=== PATIENT | male | born 1960 | race Caucasian/White ===

== ENCOUNTER 2024-02-17 20:28 | Inpatient (IN) | payer SELFPAY ==
[2024-02-17 20:31] VITALS: BP 118/73; PULSE 123; RESP 24; TEMP 37.9; O2SAT 90; BMI 23.7
--- NOTE | 2024-02-17 20:56 | CTR_ITS ---
PROCEDURE INFORMATION: Exam: CT Abdomen And Pelvis Without Contrast Exam date and time: 02/17/2024 9:44 PM Age: 63 years old Clinical indication: Pain and abnormal findings; Abnormal lab test; Abnormal kidney function lab tests and elevated lipase and elevated wbc; Abdominal pain; Localized; Left lower quadrant (llq); Patient HX: C/O llq pain with fever. Wbc 20k. Creat 4.5. Lactic 2.9. Crp 245.5. Lipase 296. ; Additional info: Fever, vomiting llq pain TECHNIQUE: Imaging protocol: Computed tomography of the abdomen and pelvis without contrast. Radiation optimization: All CT scans at this facility use at least one of these dose optimization techniques: automated exposure control; mA and/or kV adjustment per patient size (includes targeted exams where dose is matched to clinical indication); or iterative reconstruction. COMPARISON: CR (CHEST, ) 02/17/2024 9:01 PM RADIATION DOSE METRICS: Total DLP (mGy-cm): 1864.42 FINDINGS: Pleural spaces: Pleural nodularity along the posterior aspect of the lower lobes. Liver: Normal. No mass. Gallbladder and bile ducts: Normal. No calcified stones. No ductal dilation. Pancreas: Normal. No ductal dilation. Spleen: Multiple punctate calcifications in the spleen consistent with prior granulomatous infection. Adrenal glands: Normal. No mass. Kidneys and ureters: Normal. No hydronephrosis. Stomach and bowel: Unremarkable. No obstruction. No mucosal thickening. Appendix: No evidence of appendicitis. Intraperitoneal space: Unremarkable. No free air. No significant fluid collection. Vasculature: The left femoral vein is asymmetrically larger than the right with adjacent fat stranding which is nonspecific but can be seen the setting of thrombophlebitis. A left lower extremity Doppler ultrasound may be obtained to exclude thrombus. Lymph nodes: Multiple retroperitoneal enlarged lymph nodes measuring up to 11 mm in short axis in the left periaortic station. Multiple enlarged lymph nodes in the left groin measuring up to 24 mm in short axis and a left inguinal lymph node measuring up to 13 mm in short axis. Findings are nonspecific but can be seen the setting infection or neoplasm such as lymphoma. Urinary bladder: Unremarkable as visualized. Reproductive: Unremarkable as visualized. Bones/joints: Unremarkable. No acute fracture. Soft tissues: Unremarkable. CT/CT abdomen pelvis wo con [id number] IMPRESSION: 1. Multiple retroperitoneal enlarged lymph nodes measuring up to 11 mm in short axis in the left periaortic station. Multiple enlarged lymph nodes in the left groin measuring up to 24 mm in short axis and a left inguinal lymph node measuring up to 13 mm in short axis. Findings are nonspecific but can be seen the setting infection or neoplasm such as lymphoma. 2. The left femoral vein is asymmetrically larger than the right with adjacent fat stranding which is nonspecific but can be seen the setting of thrombophlebitis. A left lower extremity Doppler ultrasound may be obtained to exclude thrombus. 3. No bowel obstruction or inflammatory process associated with the bowel. 4. No free air or significant free fluid in the abdomen or pelvis. 5. No evidence of appendicitis.
--- NOTE | 2024-02-17 20:56 | XRR_ITS ---
PROCEDURE INFORMATION: Exam: XR Chest Exam date and time: 02/17/2024 9:01 PM Age: 63 years old Clinical indication: Cough and fever; Patient HX: Cough with fever and tachycardia; Additional info: Fever cough tachycardia TECHNIQUE: Imaging protocol: Radiologic exam of the chest. Views: 1 view. COMPARISON: No relevant prior studies available. FINDINGS: Lungs: Increased interstitial markings with peribronchial cuffing in the lung bases are nonspecific but can be seen the setting of bronchitis, pulmonary vascular congestion, viral infection and small-vessel airways disease. Multiple bilateral calcified granulomas. Pleural spaces: Unremarkable. No pleural effusion. No pneumothorax. Heart/Mediastinum: Unremarkable. No cardiomegaly. Bones/joints: Unremarkable. XR/XR chest 1V portable [id number] IMPRESSION: Increased interstitial markings with peribronchial cuffing in the lung bases are nonspecific but can be seen the setting of bronchitis, pulmonary vascular congestion, viral infection and small-vessel airways disease.
[2024-02-17 21:04] LABS: Basophils % 0.1 %; Hematocrit 41.2 % (37-53); Lymphocytes # 1.8 10^3/uL (0.8-4.8); Lymphocytes % 8.6 %; Mean Corpuscular Hemoglobin 31.1 pg (27-33); Mean Platelet Volume 12.5 fL (7.4-10.4); Monocytes # 0.7 10^3/uL (0.2-0.9); Monocytes % 3.2 %; Neutrophils # 18.05 10^3/uL (1.8-7.7); Neutrophils % 86.8 %; Nucleated Red Blood Cells % 0 %; Platelet Count 184 10^3/cmm (157-399); Red Blood Count 4.63 10^6/uL (3.85-5.65); Red Cell Distribution Width 12.7 % (12.1-15.1); White Blood Count 20.78 10^3/uL (3.29-11.43)
[2024-02-17] MEDS: piperacillin-tazobactam 4.5 GM in sodium chloride 0.9% (plus) 50 ML IV (21:17)
[2024-02-17 21:18] LABS: Lactic Sepsis W/Reflex 2.9 mmol/L (0.5-2.2)
--- NOTE | 2024-02-17 21:24 | ECG_ITS ---
[facility] Test Date: 2024-02-17 Pat Name: Joanna Mascorro Department: Room: Gender: Male Talent Development Director: : [id number] Requested By: Gerson Avila Order Number: [id number] Reading MD: Martinez Mathews M.D. Measurements Intervals [place]ott Rate: 110 P: 73 AR: 161 QRS: 81 QRSD: 98 T: 29 QT: 293 QTc: 397 Interpretive Statements SINUS TACHYCARDIA NONSPECIFIC T-WAVE ABNORMALITY ABNORMAL RHYTHM ECG No previous ECG available for comparison Electronically Signed On 02-18-2024 14:29:49 CDT by Martinez Mathews M.D. [id number]
[2024-02-17 21:30] LABS: Alanine Aminotransferase 97 U/L (0-41); Albumin Level 3.2 g/dL (3.5-5.2); Alkaline Phosphatase 75 U/L (40-130); Anion Gap 22.7 (5-19); Aspartate Amino Transferase 262 U/L (0-40); Blood Urea Nitrogen 71 mg/dL (8-23); C Reactive Protein 245.5 mg/L (0.0-4.9); Calcium 7.4 mg/dL (8.5-10.5); Carbon Dioxide 22 mmol/L (22-29); Chloride 93 mmol/L (98-107); Glomerular Filtration Rate 13.3 mL/min (90-130); Glucose 171 mg/dL (65-115); Lipase 296 U/L (13-60); Magnesium 2.9 mg/dL (1.7-2.3); NT Pro B Type Natriuretic Pept 96 pg/mL (0-125); Osmolality Calculated 303 mOsm/kg (285-295); Potassium 3.7 mmol/L (3.5-5.1); Sodium 134 mmol/L (136-145); Total Bilirubin 0.8 mg/dL (0.15-1.2); Total Protein 7.2 g/dL (6.6-8.7)
--- NOTE | 2024-02-17 21:49 | ED_ITS ---
HPI - Abdominal Pain 2 General: Chief Complaint: Abdominal Pain Stated Complaint: Vomiting\Diah\Fever\ Time Seen by Provider: 02/17/24 20:44 History of Present Illness: 63-year-old male gentleman who says he h as been sick for a week. He complains of intermittent abdominal pain, vomiting, some loose stool, and fever. He has had a cough as well, which is a chronic thing for him. Minimal sputum production. He has got lethargic in the last day or so, so his family brought him in. No sick contacts. No exposure to antibiotics recently. He does not appear to be on any medications. Associated Symptoms: Reports chills, diarrhea, fever(s), nausea and vomiting; Denies hematochezia Review of Systems 2 Const: Reports: fever(s) and chills Eyes: Denies: change in vision Card: Denies: chest pain Resp: Reports: dyspnea and non-productive cough GI: Reports: abdominal pain, nausea, vomiting and diarrhea; Denies: hematochezia : Denies: flank pain or difficulty urinating Skin/Breast: Denies: rash Physical Exam 2 Const: GENERAL APPEARANCE: cooperative and ill appearing; not frail appearing NUTRITIONAL APPEARANCE: thin HENMT: COMMON NORMALS: normocephalic, atraumatic and Normal external nose present HEAD & SCALP: normocephalic and atraumatic FACE & SINUS: normal facial exam and face symmetric NOSE: Normal external nose present Eye: COMMON NORMALS: Equal, round and reactive pupils present and EOMs intact bilaterally PUPIL: Yes Equal, round and reactive pupils present Neck/C-Spine: GENERAL: Yes trachea midline Chest: CHEST: Yes Symmetrical chest wall rise Resp: COMMON NORMALS: clear to auscultation bilaterally EFFORT & INSPECTION: Yes tachypneic AUSCULTATION: clear to auscultation bilaterally Cardio: COMMON NORMALS: regular rhythm RATE: tachycardic RHYTHM: regular rhythm GI: COMMON NORMALS: Normal to inspection, nondistended, normoactive bowel sounds present and Soft to palpation PALPATION: Yes Soft to palpation and Yes Tenderness to palpation present (GI) Details: LLQ Extremity: GENERAL: Yes edema (1+) Neuro: OSIRIS COMA SCALE: document GCS findings Osiris coma scale eye opening: To sound [place] coma scale verbal response: Orientated Osiris coma scale motor response: Obey commands Osiris coma scale total score: 14 S ENSORY EXAM: Yes extremities (intact) Skin: COMMON NORMALS: no rashes or lesions noted GENERAL SKIN EXAM: no rashes or lesions noted Course 2 Vital Signs: Vital signs: Vital Signs Temperature 100.2 F H 02/18/24 00:55 Pulse Rate 110 H 02/18/24 00:55 Respiratory Rate 16 02/18/24 00:55 Blood Pressure 159/79 02/18/24 00:55 Pulse Oximetry 94 02/18/24 00:55 Oxygen Delivery Me thod Room Air 02/17/24 20:31 MDM - Abdominal Pain Medical Decision Making Patient meets sepsis criteria. White blood cell count is 21. Creatinine is 4.5. No prior indices in the system. His BUN is 70. He is given a sepsis bolus. Chest x-ray shows increased interstitial markings. His lipase is elevated. His BNP is normal. His CRP is 245. Liver enzymes are slightly elevated as is his lactate. CT of the abdomen pelvis are pending. He is covered with antibiotics. CT of the abdomen pelvis does not reveal specific findings, but does reveal multiple retroperitoneal lymph nodes as well as lymph nodes in the left groin. There is left femoral vein asymmetry with fat stranding which could be thrombophlebitis. Doppler has been ordered. There is no obvious colitis. Respiratory panel is negative. Spoke with hospitalist regarding admission for sepsis and acute renal failure. He agrees, and will see the patient in the ER. Heart rate is significantly improved after fluid bolus, he is down to 100. Lab Data 02/17/24 20:52 02/17/24 20:52 Labs/Radiology: Radiology Impressions Abdomen/Pelvis CT 02/17/24 20:56 IMPRESSION: 1. Multiple retroperitoneal enlarged lymph nodes measuring up to 11 mm in short axis in the left periaortic station. Multiple enlarged lymph nodes in the left groin measuring up to 24 mm in short axis and a left inguinal lymph node measuring up to 13 mm in short axis. Findings are nonspecific but can be seen the setting infection or neoplasm such as lymphoma. 2. The left femoral vein is asymmetrically larger than the right with adjacent fat stranding which is nonspecific but can be seen the setting of thrombophlebitis. A left lower extremity Doppler ultrasound may be obtained to exclude thrombus. 3. No bowel obstruction or inflammatory process associated with the bowel. 4. No free air or significant free fluid in the abdomen or pelvis. 5. No evidence of appendicitis. Chest X-Ray 02/17/24 20:56 IMPRESSION: Increased interstitial markings with peribronchial cuffing in the lung bases are nonspecific but can be seen the setting of bronchitis, pulmonary vascular congestion, viral infection and small-vessel airways disease. Laboratory Results WBC 20.78 10^3/uL (3.29-11.43) H 02/17/24 20:52 RBC 4.63 10^6/uL (3.85-5.65) 02/17/24 20:52 Hgb 14.40 g/dL (11.27-16.99) 02/17/24 20:52 Hct 41.2 % (37-53) 02/17/24 20:52 MCV 89.0 fl (82-101) 02/17/24 20:52 MCH 31.1 pg (27-33) 02/17/24 20:52 MCHC 35.0 g/dL (30-55) 02/17/24 20:52 RDW 12.7 % (12.1-15.1) 02/17/24 20:52 Plt Count 184 10^3/cmm (157-399) 02/17/24 20:52 MPV 12.5 fL (7.4-10.4) H 02/17/24 20:52 Neut % (Auto) 86.8 % 02/17/24 20:52 Lymph % (Auto) 8.6 % 02/17/24 20:52 [place] % (Auto) 3.2 % 02/17/24 20:52 Eos % (Auto) 0.0 % 02/17/24 20:52 Baso % (Auto) 0.1 % 02/17/24 20:52 Neut # (Auto) 18.05 10^3/uL (1.8-7.7) H 02/17/24 20:52 Lymph # (Auto) 1.8 10^3/uL (0.8-4.8) 02/17/24 20:52 [place] # (Auto) 0.7 10^3/uL (0.2-0.9) 02/17/24 20:52 Eos # (Auto) 0.0 10^3/uL (0.0-0.8) 02/17/24 20:52 Baso # (Auto) 0.0 10^3/uL (0.0-0.1) 02/17/24 20:52 Nucleated RBC % (auto) 0 % 02/17/24 20:52 Nucleated RBCs # 0.0 /100WBC 02/17/24 20:52 PT 14.60 SECONDS (12.1-14.9) 02/17/24 20:52 INR 1.10 (0.8-1.2) 02/17/24 20:52 Sodium 134 mmol/L (136-145) L 02/17/24 20:52 Potassium 3.7 mmol/L (3.5-5.1) 02/17/24 20:52 Chloride 93 mmol/L (98-107) L 02/17/24 20:52 Carbon Dioxide 22 mmol/L (22-29) 02/17/24 20:52 Anion Gap 22.7 (5-19) H 02/17/24 20:52 BUN 71 mg/dL (8-23) H 02/17/24 20:52 Creatinine 4.5 mg/dL (0.7-1.2) H 02/17/24 20:52 GFR Calculation 13.3 mL/min (90-130) L 02/17/24 20:52 Glucose 171 mg/dL (65-115) H 02/17/24 20:52 Calculated Osmolality 303 mOsm/kg (285-295) H 02/17/24 20:52 Lactic Acid 2.9 mmol/L (0.5-2.2) H 02/17/24 20:52 Lactic Acid (Sepsis) 2.0 mmol/L (0.5-2.2) 02/18/24 00:08 Calcium 7.4 mg/dL (8.5-10.5) L 02/17/24 20:52 Magnesium 2.9 mg/dL (1.7-2.3) H 02/17/24 20:52 Total Bilirubin 0.8 mg/dL (0.15-1.2) 02/17/24 20:52 AST 262 U/L (0-40) H 02/17/24 20:52 ALT 97 U/L (0-41) H 02/17/24 20:52 Alkaline Phosphatase 75 U/L (40-130) 02/17/24 20:52 Creatine Kinase 1133 U/L (39-308) H* 02/17/24 20:52 C-Reactive Protein 245.5 mg/L (0.0-4.9) H 02/17/24 20:52 NT-Pro-B Natriuret Pep 96 pg/mL (0-125) 02/17/24 20:52 Total Protein 7.2 g/dL (6.6-8.7) 02/17/24 20:52 Albumin 3.2 g/dL (3.5-5.2) L 02/17/24 20:52 Globulin 4.0 g/dL (1.3-4.6) 02/17/24 20:52 Lipase 296 U/L (13-60) H 02/17/24 20:52 Urine Color Yellow (Yellow) 02/17/24 22:45 Urine Appearance Cloudy (CLEAR) A 02/17/24 22:45 Urine pH 5 (5-7) 02/17/24 22:45 Ur Specific [place] 1.020 (1.005-1.030) 02/17/24 22:45 Urine Protein 1+ (Negative) H 02/17/24 22:45 Urine Glucose (UA) Trace (Normal) H 02/17/24 22:45 Urine Ketones Negative (Negative) 02/17/24 22:45 Urine Blood 3+ (Negative) H 02/17/24 22:45 Urine Nitrate Negative (Negative) 02/17/24 22:45 Urine Bilirubin 1+ (Negative) H 02/17/24 22:45 Urine Urobilinogen 1 mg/dL (Negative) H 02/17/24 22:45 Ur Leukocyte Esterase Negative (Negative) 02/17/24 22:45 Urine RBC 15-25 /hpf (0-2) H 02/17/24 22:45 Urine WBC 0-4 /hpf (0-5) H 02/17/24 22:45 Ur Squamous Epith Cells 0-4 /hpf (0-5) H 02/17/24 22:45 Amorphous Sediment 2+ /hpf 02/17/24 22:45 Urine Bacteria 3+ /hpf (NONE) H 02/17/24 22:45 Hyaline Casts 5-10 /lpf H 02/17/24 22:45 Fine Granular Casts 0-4 /lpf H 02/17/24 22:45 Coarse Granular Casts 0-4 /lpf H 02/17/24 22:45 Ethyl Alcohol < 10 mg/dL (0-10) 02/17/24 20:52 Adenovirus (PCR) Not detected (NOT DETECT) 02/17/24 22:05 C. pneumoniae DNA (PCR) Not detected (NOT DETECT) 02/17/24 22:05 Coronavirus 229E (PCR) Not detected (NOT DETECT) 02/17/24 22:05 Human Metapneumovir PCR Not detected (NOT DETECT) 02/17/24 22:05 Influenza A (H1) PCR Not detected (NOT DETECT) 02/17/24 22:05 Influ A (H1/09) PCR Not detected (NOT DETECT) 02/17/24 22:05 Influenza A (H3) PCR Not detected (NOT DETECT) 02/17/24 22:05 Influenza Type A (PCR) Not detected (NOT DETECT) 02/17/24 22:05 Influenza Type B (PCR) Not detected (NOT DETECT) 02/17/24 22:05 M. pneumoniae (PCR) Not detected (NOT DETECT) 02/17/24 22:05 Parainfluenza 1 (PCR) Not detected (NOT DETECT) 02/17/24 22:05 Parainfluenza 2 (PCR) Not detected (NOT DETECT) 02/17/24 22:05 Parainfluenza 3 (PCR) Not detected (NOT DETECT) 02/17/24 22:05 Parainfluenza 4 (PCR) Not detected (NOT DETECT) 02/17/24 22:05 RSV Type A (PCR) Not detected (NOT DETECT) 02/17/24 22:05 RSV Type B (PCR) Not detected (NOT DETECT) 02/17/24 22:05 Entero/Rhino (PCR) Not detected (NOT DETECT) 02/17/24 22:05 SARS-CoV-2 (PCR) Not detected (NOT DETECT) 02/17/24 22:05 All radiology interpretation(s) finalized by discharge Discharge Plan Discharge Patient Disposition: Admitted As Inpatient Admit Provider: Dre Fink Clinical Impression: Sepsis Condition: Serious Coding Level of Care Code ED Executive Producer for Dinh Eubanks
[2024-02-17 22:08] VITALS: BP 159/87; PULSE 104; RESP 16; O2SAT 97
[2024-02-17 22:49] LABS: Reflex Lactate Order REFLEX LACTIC ORDERD
[2024-02-17 23:11] LABS: Add Urine Microscopic? YES; Bilirubin Urine 1+ (Negative); Blood Urine 3+ (Negative); Glucose Urine UA Trace (Normal); Ketones Urine Negative (Negative); Leukocyte Esterase Urine Negative (Negative); Nitrate Urine Negative (Negative); Protein Urine 1+ (Negative); Urine Appearance Cloudy (CLEAR); Urine Color Yellow (Yellow); Urobilinogen Urine 1 mg/dL (Negative); pH Urine 5 (5-7)
[2024-02-17 23:12] LABS: Add Urine Culture? Yes; Amorphous Sediment Urine 2+ /hpf; Bacteria Urine 3+ /hpf; Coarse Granular Casts Urine 0-4 /lpf; Fine Granular Casts Urine 0-4 /lpf; RBC Urine 15-25 /hpf (0-2); Squamous Epithelial Cell Urine 0-4 /hpf (0-5); WBC Urine 0-4 /hpf (0-5)
[2024-02-17 23:58] LABS: Adenovirus Not Detected (NOT DETECT); Chlamydia Pneumoniae Not Detected (NOT DETECT); Coronavirus 229E,HKU1,NL63,OC4 Not Detected (NOT DETECT); Human Metapneumovirus Not Detected (NOT DETECT); Human Rhinovirus/Enterovirus Not Detected (NOT DETECT); Influenza A Not Detected (NOT DETECT); Influenza A H1 Not Detected (NOT DETECT); Influenza A H1-2009 Not Detected (NOT DETECT); Influenza A H3 Not Detected (NOT DETECT); Influenza B Not Detected (NOT DETECT); Mycoplasma Pneumoniae Not Detected (NOT DETECT); Parainfluenza Virus Type 1 Not Detected (NOT DETECT); Parainfluenza Virus Type 2 Not Detected (NOT DETECT); Parainfluenza Virus Type 3 Not Detected (NOT DETECT); Parainfluenza Virus Type 4 Not Detected (NOT DETECT); Respiratory Syncytial Virus A Not Detected (NOT DETECT); Respiratory Syncytial Virus B Not Detected (NOT DETECT); SARS-COV-2 Not Detected (NOT DETECT)
[2024-02-18] VITALS (11 sets, daily range): BP systolic 119–159; BP diastolic 69–81; PULSE 83–112; RESP 16–22; TEMP 36.4–39.4; O2SAT 90–94; BMI 23.4
[2024-02-18 00:39] LABS: Alcohol Level < 10 mg/dL (0-10)
[2024-02-18 00:42] LABS: Creatine Phosphokinase 1133 U/L (39-308)
--- NOTE | 2024-02-18 00:59 | P.HP_ITS ---
Providers/Chief Complaint 2 Admitting Physician: Dre Fink Chief Complaint: Vomiting\Diah\Fever\ History of Present Illness Joanna Mascorro is a 63 year old male without known medical history but does not have a primary physician, not on any medications, has not been feeling for close to a week, has been laid out as per his family. He has had nausea and vomiting as well as diarrhea. He has been getting weaker, having difficulties with his balance. In ER found to have a fever 100.9, leukocytosis 20.78. NOLA versus NOLA on CKD creatinine 4.5, BUN 71, lactic acid 2.9, transaminitis, AST 262, ALT 97, lipase 26. CRP 245. UA with 15-25 RBC, 0-4 WBC. 3+ bacteria. Chest x-ray with increased interstitial markings with peribronchial cuffing in the lung bases nonspecific but could be secondary to bronchitis, pulmonary vascular congestion, viral infection and small vessel airway disease. CT abdomen pelvis with multiple retroperitoneal enlarged lymph nodes measuring up to 11 mm in short axis and left periaortic station. Enlarged lymph nodes in the left groin, left inguinal lymph node, nonspecific, but could be seen in the setting of infection, neoplasm such as lymphoma. Additional finding of left femoral vein asymmetrically larger than the right with adjacent fat stranding which is nonspecific can be seen feeling of thrombophlebitis. Left lower extremity Doppler ultrasound may be obtained to exclude thrombus. Review of Systems 2 Const: Denies: fever(s), chills, body aches or malaise Eyes: Denies: change in vision ENMT: Denies: throat pain Card: Denies: chest pain, edema, pre-syncope or dyspnea on exertion Resp: Denies: dyspnea, productive cough, change in phlegm color or hemoptysis GI: Reports: nausea, vomiting and diarrhea; Denies: abdominal pain, constipation, hematochezia or melena : Denies: flank pain, difficulty urinating, urinary frequency or hematuria Musc: Denies: back pain, joint swelling or joint redness Skin/Breast: Denies: rash or new lesions Neuro: Reports: confusion; Denies: headache(s) or dizziness Endo: Denies: polyuria or polydipsia Medications/Allergies Allergies Allergy/AdvReac Type Severity Reaction Status Date / Time No Known Allergies Allergy Verified 02/17/24 20:36 Vitals/I&O/Wt Last Vital Signs Temp 100.2 F H 02/18/24 00:55 Pulse 110 H 02/18/24 00:55 Resp 16 02/18/24 00:55 BP 159/79 02/18/24 00:55 Pulse Ox 94 02/18/24 00:55 O2 Del Method Room Air 02/17/24 20:31 02/17/24 02/17/24 02/18/24 14:59 22:59 06:59 Intake Total 2567.45 / 2567.45 Balance 2567.45 / 2567.45 Weight last 48 hrs Weight 83.915 kg Physical Exam 2 Narrative: Accompanied by family including his son Const: COMMON NORMALS: alert GENERAL APPEARANCE: cooperative O RIENTATION/CONSCIOUSNESS: Yes awake and Yes lethargic OTHER: Wakes up to voice HENMT: COMMON NORMALS: oropharynx normal OTHER: Minimal pink discoloration of bilateral EAM Neck/C-Spine: COMMON NORMALS: no JVD Resp: COMMON NORMALS: normal respiratory effort and clear to auscultation bilaterally AUSCULTATION: clear to auscultation bilaterally Cardio: COMMON NORMALS: no JVD, regular rhythm, S1 normal heart sound present, S2 normal heart sound present and No murmurs present (Cardio) RHYTHM: regular rhythm HEART SOUNDS: S1 normal heart sound present and S2 normal heart sound present GI: COMMON NORMALS: Normal to inspection, nondistended, normoactive bowel sounds present, Soft to palpation and non-tender PALPATION: Yes Soft to palpation Extremity: COMMON NORMALS: no joint enlargement GENERAL: Yes edema (3+ L ankle, 2+ R ankle) Neuro: COMMON NORMALS: patient oriented x3 and moves all extremities S ENSORIUM/ORIENTATION: Yes alert Skin: OTHER: Shallow ulceration of posterior left heel without drainage Sepsis: Is patient septic: Yes Focused sepsis exam performed: Yes F ocused sepsis exam: Good capillary refill, no mottling or cyanosis. Data 02/17/24 20:52 02/17/24 20:52 A&P Assessment and plan (1) Sepsis: Presents with sepsis of unclear etiology, with fever 100.9, leukocytosis 21, tachycardia 110, later fever up to 102, has been feeling unwell for close to about a week. Has been having nausea vomiting and diarrhea. Is been going weaker, some difficulty with his balance. Reviewed vitals, CBC, INR, CMP, lactic acid, CK, CRP, lipase, magnesium, UA, respiratory viral panel, chest x- ray, CT abdomen pelvis, venous duplex, ER note, discussed with ER provider. Possibly combination of acute viral illness with systemic symptoms, with secondary infection, possibly UTI, with dehydration, rhabdomyolysis, NOLA, acute liver injury, lactic acidosis, acute encephalopathy. Blood cultures requested, urine cultures pending. Empiric antibiotic coverage with Zosyn for now. He denies headache, no meningeal signs, however, with acute encephalopathy, sepsis. Did complain of some intermittent back pain, will obtain CT thoracic lumbar spine. Zosyn, linezolid. Monitor for risk of agranulocytosis with linezolid. Requested tick panel as well. Empiric doxycycline. Coxiella serology, Leptospira. With left heel ulcer, left groin and para-aortic lymphadenopathy, Francisella serology. Consider infectious disease consultation if available. Lipase elevation 296, possible pancreatitis, although not noted on CT abdomen pelvis. Follow-up lipase level, n.p.o. for now. Obtain upper quadrant ultrasound. Triglyceride level. (2) Acute encephalopathy: Acute encephalopathy possibly metabolic with multiple derangements including dehydration, NOLA, liver dysfunction, also possible infection, sepsis. Assess respiratory viral panel, blood cultures obtained, follow-up. Treat possible UTI. Obtain additional imaging of the thoracic and lumbar spine. Obtain LP. (3) NOLA (acute kidney injury): Suspect prerenal after nausea vomiting and diarrhea, poor oral intake, received fluid challenge in ER. Continue gentle hydration with LR. Does have peripheral edema, at risk of fluid overload. Noted CK elevation, 1133, follow-up level. (4) Liver dysfunction: Liver dysfunction, baseline unknown. AST 262, ALT 97. He denies any alcohol consumption. EtOH is negative. And UDS, denies any recreational substance use. Obtain respiratory viral panel, hepatitis panel. Lipase elevation 296, possible pancreatitis, although not noted on CT abdomen pelvis. Follow-up lipase level, n.p.o. for now. Obtain upper quadrant ultrasound. Triglyceride level. (5) Lymphadenopathy: Left inguinal, para-aortic lymphadenopathy, unclear cause. He denies any symptoms in the left leg, left groin. With small ulceration of the posterior left heel. Will need follow-up, consideration of a biopsy. For now we will send Francisella serology. Plan Left heel ulcer: No drainage, minimal light surrounding erythema. Protect with foam dressing. Does not have a primary care provider, unknown health status otherwise. Case management consultation for post discharge planning and will need a PCP. Attestations 2 Medical Necessity Statement*: Admission of over 2 midnights anticipated for assessment of management of sepsis, acute encephalopathy, NOLA, liver dysfunction, NOLA, additional medical problems as above, in a gentleman with unknown past medical history, does not have a PCP. Diagnoses Sepsis A41.9 Acute encephalopathy G93.40 NOLA (acute kidney injury) N17.9 Liver dysfunction K76.89 Lymphadenopathy R59.1
--- NOTE | 2024-02-18 01:39 | CTR_ITS ---
PROCEDURE INFORMATION: Exam: CT Lumbar Spine Without Contrast Exam date and time: 02/18/2024 2:32 AM Age: 63 years old Clinical indication: Low back pain; Patient HX: C/O back pain. Currently septic. ; Additional info: Encephalopathy, sepsis, interm back pain TECHNIQUE: Imaging protocol: Computed tomography of the lumbar spine without contrast. Radiation optimization: All CT scans at this facility use at least one of these dose optimization techniques: automated exposure control; mA and/or kV adjustment per patient size (includes targeted exams where dose is matched to clinical indication); or iterative reconstruction. COMPARISON: CT thoracic spin wo con* [id number] 02/18/2024 2:28 AM RADIATION DOSE METRICS: Total DLP (mGy-cm): 1807 FINDINGS: Bones/joints: Mild levocurvature of the lumbar spine is present. The normal lumbar lordosis is maintained with trace retrolisthesis of L3. No fracture identified. Vertebral body heights are well preserved. There are multilevel degenerative changes, manifested by intervertebral disc space narrowing, endplate osteophytes and facet joint arthrosis. No significant disc protrusion. No severe spinal canal stenosis. Lymph nodes: Enlarged retroperitoneal and bilateral iliac chain lymph nodes noted, the largest on the left measuring 1.2 cm in transverse dimension. Soft tissues: Unremarkable. CT/CT lumbar spine wo con* [id number] IMPRESSION: 1. No acute findings in the lumbar spine. 2. Retroperitoneal and bilateral iliac chain lymphadenopathy. Clinical correlation recommended.
--- NOTE | 2024-02-18 01:39 | CTR_ITS ---
PROCEDURE INFORMATION: Exam: CT Thoracic Spine Without Contrast Exam date and time: 02/18/2024 2:28 AM Age: 63 years old Clinical indication: Pain in thoracic spine; Patient HX: C/O back pain. Currently septic. ; Additional info: Encephalopathy, sepsis, interm back pain TECHNIQUE: Imaging protocol: Computed tomography of the thoracic spine without contrast. Radiation optimization: All CT scans at this facility use at least one of these dose optimization techniques: automated exposure control; mA and/or kV adjustment per patient size (includes targeted exams where dose is matched to clinical indication); or iterative reconstruction. COMPARISON: CT abdomen pelvis wo con [id number] 02/17/2024 9:44 PM RADIATION DOSE METRICS: Total DLP (mGy-cm): 1253.61 FINDINGS: Bones/joints: No acute fracture. There is mild dextrocurvature of the thoracic spine, which may be positional. Mild degenerative changes seen. No significant disc bulge or herniation. No severe spinal canal stenosis. No significant neural foraminal narrowing. Soft tissues: Unremarkable. Lymph nodes: Small mediastinal and bilateral hilar calcified lymph nodes noted, likely sequela of previous granulomatous disease. Lungs: Few tiny calcified granulomas are noted in both lungs. Bilateral dependent atelectasis seen. There is bilateral peribronchial thickening and few pleural-based ground-glass densities both lungs, which given history of sepsis is concerning for pneumonia. Septic pulmonary emboli have this appearance. Trace right pleural fluid suggested. No pneumothorax. CT/CT thoracic spin wo con* [id number] IMPRESSION: 1. No acute findings in the thoracic spine. 2. Imaging findings concerning for pneumonia. Septic pulmonary emboli should be considered.
[2024-02-18] MEDS: doxycycline 100 MG in sodium chloride 0.9% (plus) 100 ML IV ×2 (02:15→16:46)
[2024-02-18] MEDS: enoxaparin 30 mg/0.3 mL Syringe SUBCUT (03:07)
[2024-02-18] MEDS: lactated ringers 1,000 ML 30 ML IV (03:07)
[2024-02-18 03:31] LABS: Hepatitis A Antibody IgM Non-Reactive (Nonreactive); Hepatitis B Core IgM Non-Reactive (Nonreactive); Hepatitis B Surface Antigen Non-Reactive (Nonreactive); Hepatitis C Virus Antibody Non-Reactive (Nonreactive)
[2024-02-18] MEDS: acetaminophen 650 mg Supp PR (03:33)
[2024-02-18] MEDS: linezolid premix 600 MG/300 ML PREMIX 300 MG IV ×2 (03:41→16:46)
--- NOTE | 2024-02-18 06:00 | USR_ITS ---
PROCEDURE INFORMATION: Exam: US Duplex Left Lower Extremity Veins, Limited Exam date and time: 02/18/2024 1:02 AM Age: 63 years old Clinical indication: Edema, localized; Lower extremity, left; Additional info: Le edema and pain TECHNIQUE: Imaging protocol: Real-time duplex ultrasound of the left extremity with 2-D no scale, color Doppler flow and spectral waveform analysis including responses to compression and other maneuvers (when performed) with image documentation. Limited exam focused on the left lower extremity veins. COMPARISON: CT abdomen pelvis wo con [id number] 02/17/2024 9:44 PM FINDINGS: Left deep veins: Unremarkable. The common femoral, femoral, proximal profunda femoral and popliteal veins are patent without thrombus. Normal Doppler waveforms. Normal compressibility and/or augmentation response. Superficial veins: Greater saphenous vein at the saphenofemoral junction is patent without thrombus. Soft tissues: Enlarged left groin lymph node measuring up to 16 mm in short [place]. US/[place] [id number] IMPRESSION: 1. No evidence of deep vein thrombosis in the left lower extremity. 2. Enlarged left groin lymph node measuring up to 16 mm in short axis.
[2024-02-18] MEDS: piperacillin-tazobactam 3.375 GM in sodium chloride 0.9% (plus) 50 ML IV ×2 (09:46→22:04)
[2024-02-18 11:46] LABS: Basophils % 0.2 %; Hematocrit 37.9 % (37-53); Lymphocytes # 1.2 10^3/uL (0.8-4.8); Lymphocytes % 6.5 %; Mean Corpuscular Hemoglobin 30.7 pg (27-33); Mean Corpuscular Volume 93.1 fl (82-101); Mean Platelet Volume 12.5 fL (7.4-10.4); Monocytes # 0.4 10^3/uL (0.2-0.9); Monocytes % 2.2 %; Neutrophils # 16.75 10^3/uL (1.8-7.7); Neutrophils % 89.6 %; Nucleated Red Blood Cells % 0 %; Platelet Count 136 10^3/cmm (157-399); Red Blood Count 4.07 10^6/uL (3.85-5.65); Red Cell Distribution Width 13.1 % (12.1-15.1); White Blood Count 18.71 10^3/uL (3.29-11.43)
[2024-02-18 12:11] LABS: Alanine Aminotransferase 89 U/L (0-41); Albumin Level 2.7 g/dL (3.5-5.2); Alkaline Phosphatase 66 U/L (40-130); Anion Gap 20.5 (5-19); Aspartate Amino Transferase 297 U/L (0-40); Calcium 6.8 mg/dL (8.5-10.5); Carbon Dioxide 20 mmol/L (22-29); Chloride 98 mmol/L (98-107); Creatinine Clr Calc Pharmacy 15.6993; Globulin 3.4 g/dL (1.3-4.6); Glomerular Filtration Rate 10.2 mL/min (90-130); Glucose 131 mg/dL (65-115); Osmolality Calculated 307 mOsm/kg (285-295); Potassium 3.5 mmol/L (3.5-5.1); Sodium 135 mmol/L (136-145); Total Bilirubin 0.7 mg/dL (0.15-1.2); Total Protein 6.1 g/dL (6.6-8.7)
[2024-02-18 12:13] LABS: Blood Urea Nitrogen 84 mg/dL (8-23); Creatine Phosphokinase 886 U/L (39-308)
[2024-02-18 12:19] LABS: Lipase 673 U/L (13-60)
--- NOTE | 2024-02-18 17:05 | PM.PN ---
Subjective Subjective: No significant events noted since this morning. He denies any new complaints, family at bedside. Medications: Reviewed: Yes Vitals/I&O/Wt Last Vital Signs Temp 98.0 F 02/18/24 16:00 Pulse 86 02/18/24 16:00 Resp 16 02/18/24 16:00 BP 119/72 02/18/24 16:00 Pulse Ox 90 02/18/24 16:00 O2 Del Method Room Air 02/18/24 16:00 02/18/24 02/18/24 02/18/24 06:59 14:59 22:59 Intake Total 2967.45 / 2967.45 50 / 50 Balance 2967.45 / 2967.45 50 / 50 Weight last 48 hrs Weight 83.206 kg Weight 82.917 kg Weight 83.915 kg Physical Exam Narrative: He is awake and oriented x 3, with occasional clouding of thoughts Chest clear to auscultation bilaterally Cardiovascular normal heart sounds no murmurs Abdomen soft nondistended nontender normal bowel sounds Extremities bilateral 1+ pitting edema present. Data 02/18/24 11:34 02/18/24 11:34 Micro: Microbiology 02/18/24 00:00 Blood Culture - Preliminary Blood SPECIMEN COLLECTED 02/18/24 00:00 Blood Culture - Preliminary Blood SPECIMEN COLLECTED A&P Assessment and plan (1) NOLA (acute kidney injury): (2) Acute encephalopathy: (3) Sepsis: (4) Liver dysfunction: (5) Elevated lipase: Plan Sepsis-etiology unknown Continue with IV linezolid and Zosyn and empiric doxycycline Follow-up serologies for Coxiella Leptospira Francisella. Elevated lipase likely secondary to sepsis, will continue to monitor. Will check ultrasound abdomen and pelvis Acute encephalopathy-resolving Patient seems more alert and awake this morning. Also family at bedside endorses improvement in his mental function since admission NOLA-likely due to dehydration , rhabdomyolysis and sepsis. Worsening creatinine, will follow-up labs in a.m. and nephrology consult as needed Continue IV fluids for now Improving CK levels. Diet clear liquid diet. DVT prophylaxis with Lovenox He is full code for now Attestations Medical Necessity Statement*: He needs continued hospitalization for sepsis and IV antibiotics, management of acute renal failure. Time Spent in Patient Care: 25 minutes Coding Level of Care Code Acute Code for [facility] Diagnoses NOLA (acute kidney injury) N17.9 Acute encephalopathy G93.40 Sepsis A41.9 Liver dysfunction K76.89 Elevated lipase R74.8 Time Spent (min) 25
--- NOTE | 2024-02-18 18:25 | P.CONIM_ITS ---
Providers/Reason For Consult 2 Consulting Physician/Specialty*: john steven md / telenephrology Reason for Consult*: NOLA Requesting Physician: DR Rob Attending Physician: Nighat Rob MD History of Present Illness History of Present Illness Joanna Mascorro is a 63 year old male without known medical history, not on any medications. The patient was admitted last night with fevers, weakness, AMS. He has had nausea and vomiting as well as diarrhea. He has been getting weaker, having difficulties with his balance. In ER found to have a fever 100.9, leukocytosis 20.78. He was found to have NOLA- cr 4.5, transaminitis, AST 262, ALT 97, lipase 26. CRP 245. UA with 15-25 RBC, 0-4 WBC. 3+ bacteria. Chest x-ray with increased interstitial markings with peribronchial cuffing in the lung bases nonspecific but could be secondary to bronchitis, pulmonary vascular congestion, viral infection and small vessel airway disease. CT abdomen pelvis with multiple retroperitoneal enlarged lymph nodes measuring up to 11 mm in short axis and left periaortic station. Enlarged lymph nodes in the left groin, left inguinal lymph node, nonspecific, but could be seen in the setting of infection, neoplasm such as lymphoma. Additional finding of left femoral vein asymmetrically larger than the right with adjacent fat stranding which is nonspecific can be seen feeling of thrombophlebitis. He was admitted and started on ivf, zosyn and linezolid, along w/ doxycycline. renal is now called to consult as he is oliguric and AMS w/ rising CR. Review of Systems 2 Narrative: confused, weak, n/v, poor uop, lethargic Medications/Allergies Home Medications Medication Instructions Recorded Confirmed Last Taken Type No Known Home Medications 02/18/24 02/18/24 Unknown History Allergies Allergy/AdvReac Type Severity Reaction Status Date / Time No Known Allergies Allergy Verified 02/17/24 20:36 Current Medications Generic Name Dose Route Start Last Admin Trade Name Freq PRN Reason Stop Dose Admin Acetaminophen 650 mg 02/18/24 03:22 02/18/24 03:33 Acetaminophen 650 Mg Supp AK 650 mg Q4H PRN Administration MILD PAIN OR INCREASE TEMP Enoxaparin Sodium 30 mg 02/18/24 02:30 02/18/24 03:07 Enoxaparin 30 Mg/0.3 Ml Syringe SUBCUT 30 mg Q24H BURT Administration Doxycycline Hyclate 100 mg/ 100 mls @ 100 mls/hr 02/18/24 01:45 02/18/24 16:46 Sodium Chloride IV 100 mls/hr Q12H BURT Administration Protocol Lactated Ringer's 1,000 mls @ 30 mls/hr 02/18/24 02:15 02/18/24 03:07 Lactated Ringers IV 02/20/24 02:14 30 mls/hr .Q24H BURT Administration Linezolid 600 mg in 300 mls @ 300 mls/hr 02/18/24 03:15 02/18/24 16:46 Zyvox Premix IV 300 mls/hr Q12H BURT Administration Protocol Piperacillin Sod/Tazobactam 50 mls @ 12.5 mls/hr 02/18/24 09:15 02/18/24 13:50 Sod 3.375 gm/ Sodium Chloride IV Infused Q12H BURT Infusion Protocol Vitals/I&O/Wt Last Vital Signs Temp 98.0 F 02/18/24 16:00 Pulse 86 02/18/24 16:00 Resp 16 02/18/24 16:00 BP 119/72 02/18/24 16:00 Pulse Ox 90 02/18/24 16:00 O2 Del Method Room Air 02/18/24 16:00 02/18/24 02/18/24 02/18/24 06:59 14:59 22:59 Intake Total 2967.45 / 2967.45 50 / 50 Balance 2967.45 / 2967.45 50 / 50 Weight last 48 hrs Weight 83.206 kg Weight 82.917 kg Weight 83.915 kg Physical Exam 2 Narrative: swollen in bed, confused vs noted hent- nc/at, eomi , anicteric neck supple lungs crackles b/l heart reg abdomen soft, +BS ext + b/l edema neuro- a,a, o x 1-2 telehealth visit- examined by RN Data 02/18/24 11:34 02/18/24 11:34 Micro: Microbiology 02/18/24 00:00 Blood Culture - Preliminary Blood SPECIMEN COLLECTED 02/18/24 00:00 Blood Culture - Preliminary Blood SPECIMEN COLLECTED A&P Assessment and plan (1) NOLA (acute kidney injury): 63 yr old man 1. NOLA- D dx is broad- no hydronephrosis on renal ct scan -not post renal azotemia -oliguric after liters of fluids- unlikely prerenal failure. u/a cloudy, 1+ prot, gluc trace, 3+ blood, 15-25 RBC, 3+ bacteria, hyaline casts 5-10 , fine granular casts 0-4, coarse granular casts 0-4 -he likely has a UTI may also have ATN vs a GN -cpk of 1133 - not high enough to cause NOLA- unless was much higher. recommendations- lasix send all serologies and hepatitis panel -please place a PPD -w/ lymphadeopathy - assess for cancer. send ldh also send SPEP, SIFE, free light chains -given AMS, NOLA, and thrombocytopenia and fevers- likely from infection- however- send ldh, retic count, haptoglobin please review a peripheral blood smear for schistocytes 2. on admission inc AGMA of 19- from NOLA and lactic acidosis. no ketones in urine -Anion gap has improved 3. I am concerned that pt may need dialysis soon if renal function worsens, consider steroids, consider transfer for renal biopsy discussed w/ pt, RN, pts family over the phone. -discussed w/ Dr Rob -Informed consent for telehealth obtained from pts family Plan see above Consult Attestations 2 Medical Necessity Statement: nola, ams, fevers Time Spent in Patient Care: Greater than 35 minutes Coding Level of Care Code [facility] Diagnoses NOLA (acute kidney injury) N17.9
[2024-02-18 20:03] LABS: Reticulocyte % 0.8 % (0.5-2.0)
[2024-02-18 20:23] LABS: Lactate Dehydrogenase 1422 U/L (135-225)
[2024-02-18 20:30] LABS: Amphetamines Screen Urine Negative (Negative); Barbiturates Screen Urine Negative (Negative); Benzodiazepines Screen Urine Negative (Negative); Cocaine Screen Urine Negative (Negative); Opiate Screen Urine Negative (Negative); PCP Screen Urine Negative (Negative); THC Screen Urine Negative (Negative)
[2024-02-18 20:33] LABS: Uric Acid 8.4 mg/dL (3.4-7.0)
[2024-02-18 20:39] LABS: Lactate (Lactic Acid level) 1.5 mmol/L (0.5-2.2)
[2024-02-18 21:11] LABS: HIV 1 & 2 Antibody Non-Reactive (Non-Reactiv); HIV 1 & 2 Antigen Non-Reactive (Non-Reactiv)
[2024-02-18 21:11] LABS: Estmated Average Glucose 123; Hemoglobin A1C 5.9 % (4.0-6.0)
[2024-02-18] MEDS: tuberculin 5 unit/0.1 mL (per dose) INTRADERMA (21:50)
[2024-02-18] MEDS: FUROsemide 10 mg/mL SDV 10mL 60 MG IVP (21:54)
[2024-02-18 23:05] LABS: Hepatitis C Virus Antibody Non-Reactive (Nonreactive)
[2024-02-19] VITALS (8 sets, daily range): BP systolic 121–159; BP diastolic 62–83; PULSE 71–89; RESP 16–20; TEMP 36.4–37; O2SAT 91–94
[2024-02-19 00:19] LABS: Glucose Urine UA Norm (Normal); Protein Urine Neg (Negative); Urine Appearance Slightly Cloudy (CLEAR); Urine Color Yellow (Yellow); pH Urine 5 (5-7)
[2024-02-19 00:20] LABS: Bilirubin Urine Neg (Negative); Blood Urine 3+ (Negative); Ketones Urine Negative (Negative); Leukocyte Esterase Urine Negative (Negative); Nitrate Urine Negative (Negative); Urobilinogen Urine Neg (Negative)
[2024-02-19 00:21] LABS: Add Urine Culture? No; Amorphous Sediment Urine 2+ /hpf; Bacteria Urine 1+ /hpf; Mucus Urine 3+ /hpf
[2024-02-19 00:22] LABS: Potassium, Radom Urine 11 mmol/L; Urine Random Chloride 96 mmol/L; Urine Random Sodium 96 mmol/L
[2024-02-19] MEDS: doxycycline 100 MG in sodium chloride 0.9% (plus) 100 ML IV ×2 (03:14→13:42)
[2024-02-19] MEDS: lactated ringers 1,000 ML 30 ML IV (03:18)
--- NOTE | 2024-02-19 03:57 | PC.NURSE ---
Lovenox non-administered in preparation for lumbar puncture today.
[2024-02-19] MEDS: linezolid premix 600 MG/300 ML PREMIX 300 MG IV ×2 (04:24→16:53)
[2024-02-19 06:15] LABS: Basophils # 0.1 10^3/uL (0.0-0.1); Basophils % 0.4 %; Hematocrit 32.4 % (37-53); Lymphocytes # 1.8 10^3/uL (0.8-4.8); Lymphocytes % 10.5 %; Mean Corpuscular HGB Conc 33.6 g/dL (30-55); Mean Corpuscular Hemoglobin 30.8 pg (27-33); Mean Corpuscular Volume 91.5 fl (82-101); Mean Platelet Volume 13.3 fL (7.4-10.4); Monocytes # 0.5 10^3/uL (0.2-0.9); Monocytes % 3.2 %; Neutrophils # 14.39 10^3/uL (1.8-7.7); Neutrophils % 84.1 %; Nucleated Red Blood Cells % 0 %; Platelet Count 98 10^3/cmm (157-399); Red Blood Count 3.54 10^6/uL (3.85-5.65); Red Cell Distribution Width 12.9 % (12.1-15.1); White Blood Count 17.11 10^3/uL (3.29-11.43)
[2024-02-19 06:37] LABS: Alanine Aminotransferase 74 U/L (0-41); Albumin Level 2.2 g/dL (3.5-5.2); Alkaline Phosphatase 58 U/L (40-130); Aspartate Amino Transferase 248 U/L (0-40); Calcium 6.6 mg/dL (8.5-10.5); Carbon Dioxide 18 mmol/L (22-29); Chloride 94 mmol/L (98-107); Creatinine Clr Calc Pharmacy 14.9143; Globulin 3.1 g/dL (1.3-4.6); Glomerular Filtration Rate 9.6 mL/min (90-130); Glucose 144 mg/dL (65-115); Magnesium 2.8 mg/dL (1.7-2.3); Osmolality Calculated 300 mOsm/kg (285-295); Phosphorus 5.8 mg/dL (2.5-4.5); Sodium 130 mmol/L (136-145); Total Bilirubin 0.6 mg/dL (0.15-1.2); Total Protein 5.3 g/dL (6.6-8.7)
[2024-02-19 06:39] LABS: Calcium 6.2 mg/dL (8.5-10.5); Iron 73 ug/dL (59-158); Percent Saturation 70.1 % (20-50); Total Iron Binding Capacity 104 mcg/dl; Unsaturated Iron Binding 31 ug/dL (112-347)
[2024-02-19 06:45] LABS: Parathyroid Hormone 219.7 pg/mL (15-65)
[2024-02-19 06:54] LABS: 25 Hydroxy Vitamin D 6 ng/mL (30-100)
[2024-02-19 07:07] LABS: Blood Urea Nitrogen 89 mg/dL (8-23); Creatine Phosphokinase 466 U/L (39-308); Lipase 839 U/L (13-60)
[2024-02-19 07:10] LABS: Anion Gap 21.3 (5-19); Potassium 3.3 mmol/L (3.5-5.1)
--- NOTE | 2024-02-19 07:36 | US_ITS ---
WS: [id number] RENAL ULTRASOUND HISTORY: worseing acute renal failure COMPARISON: None available. TECHNIQUE: 2-D and color Doppler imaging of the kidney submitted. Right kidney: 11.8 cm x 5.4 cm x 4.6 cm. Cortex: 1.4 cm Normal echogenicity with no hydronephrosis or mass. Left kidney: 11.3 cm x 6.0 cm x 6.2 cm. Cortex: 1.4 cm Normal echogenicity with no hydronephrosis or mass. Aorta: Normal. Urinary Bladder: Nondistended, Walton catheter in place. US/US renal BI* [id number] IMPRESSION: Normal renal ultrasound.
[2024-02-19] MEDS: piperacillin-tazobactam 3.375 GM in sodium chloride 0.9% (plus) 50 ML IV ×2 (08:52→21:18)
[2024-02-19] MEDS: potassium chloride ER 20 mEq Tablet 40 MEQ PO (08:52)
[2024-02-19 08:54] LABS: Ferritin 33270 ng/mL (30-400)
--- NOTE | 2024-02-19 09:45 | PC.CHAP ---
Pastoral Care Encounter/Spiritual Assessment Type of Contact [] Declined transaction manager visit [] Patient/Family/Request visit [] Outpatient visit [] Follow-up visit [] Physician referral [] Code/Alert [] Routine visit [] Staff referral [] Actively dying [] Patient sleeping [] Family support [] [] Out of room [] Palliative care [] [] Receiving care in room [] Pre-surgical visit [] Trauma [] Long length of stay [] ICU visit [x] Other:Contact precautions. No visit. Relational/Emotional Strength [] Patient feels connected with others/family/visitors/staff [] Distress [] Loneliness/isolation [] Abandonment Spirituality of Patient [] Person of Daniella [] Attends Synagogue of their Daniella [] Believes in Prayer [] Reads Bible or Samaritan materials [] There are Spiritual issues to be addressed Range Aid Interventions [] Prayer [] Active listening [] Non-anxious presence [] Spiritual/emotional support [] Crisis/trauma care [] Spiritual counseling [] Bereavement support [] Provided bereavement packet [] Provided Bible/devotional materials [] Provided toy/stuffed animal, coloring book to patient or family member [] Provided Communion [] Anointing/[facility] [] Salvation [] Completed spiritual assessment [] Other: Impact on Illness or Injury [] Angry [] Fearful [] Anxious [] Often cries [] Exhaustion [] Unable to work [] Unable to attend oriental orthodox [] Unable to walk/stand [] Unable to read [] Unable to drive [] Unable to eat/drink [] Unable to sleep [] Unable to be with family [] Patient intubated [] Other: Summary Time spent with patient
--- NOTE | 2024-02-19 10:17 | PM.PN ---
Subjective Subjective: The patient was seen and examined. Telehealth visit. The nurse help me. The patient's son was in the room. The patient is more awake. Patient states that he ate this morning. He is urinating with a Walton catheter. He has known nausea. He does not remember what was going on at home prior to admission. He has mild swelling in his left lower extremity. He has no itching or cramps. He denies recent infections. Medications: Reviewed: Yes Medication Review Details: Current Medications Acetaminophen (Acetaminophen 325 Mg Tablet) 650 mg PO Q6H PRN PRN Reason: Mild/Mod Pain Or Temp >/= 101 Acetaminophen (Acetaminophen 650 Mg Supp) 650 mg [place] Q4H PRN PRN Reason: MILD PAIN OR INCREASE TEMP Last Admin: 02/18/24 03:33 Dose: 650 mg Enoxaparin Sodium (Enoxaparin 30 Mg/0.3 Ml Syringe) 30 mg SUBCUT Q24H BURT Last Admin: 02/19/24 02:27 Dose: Not Given Doxycycline Hyclate 100 mg/ (Sodium Chloride) 100 mls @ 100 mls/hr IV Q12H BURT; Protocol Last Infusion: 02/19/24 04:39 Dose: Infused Lactated Ringer's (Lactated Ringers) 1,000 mls @ 30 mls/hr IV .Q24H BURT Stop: 02/20/24 02:14 Last Admin: 02/19/24 03:18 Dose: 30 mls/hr Linezolid (Zyvox Premix) 600 mg in 300 mls @ 300 mls/hr IV Q12H BURT; Protocol Last Infusion: 02/19/24 05:30 Dose: Infused Piperacillin Sod/Tazobactam (Sod 3.375 gm/ Sodium Chloride) 50 mls @ 12.5 mls/hr IV Q12H BURT; Protocol Last Admin: 02/19/24 08:52 Dose: 12.5 mls/hr Ondansetron HCl (Ondansetron 2 Mg/Ml Sdv 2 Ml) 4 mg IVP Q8H PRN PRN Reason: vomiting, or N/V if npo Vitals/I&O/Wt Last Vital Signs Temp 97.5 F L 02/19/24 07:52 Pulse 80 02/19/24 07:52 Resp 16 02/19/24 07:52 BP 126/78 02/19/24 07:52 Pulse Ox 92 02/19/24 07:52 O2 Del Method Room Air 02/19/24 07:52 02/18/24 02/19/24 02/19/24 22:59 06:59 14:59 Intake Total 460 / 510 1295.5 / 1805.5 50 / 50 Output Total 1000 / 1000 Balance 460 / 510 295.5 / 805.5 50 / 50 Weight last 48 hrs Weight 83.206 kg Weight 83.206 kg Weight 82.917 kg Weight 83.915 kg Physical Exam Narrative: comfortable in bed, more awake following commands. No apparent distress. vs noted hent- nc/at, eomi , anicteric neck supple lungs good air movement b/l heart reg, positive S1-S2 abdomen soft, +BS ext + left lower extremity edema neuro- a,a, o x 2, moving but weak. telehealth visit- examined by RN Urinary Catheter Management: Walton: Cath Placed During This Visit: yes Reason for Continuing Indwelling Catheter: Other Urinary Catheter Date of Insertion: 02/18/24 Urinary Catheter Time of Insertion: 21:00 Data 02/19/24 06:01 02/19/24 06:01 Micro: Microbiology 02/17/24 22:45 Urine Culture - Final Urine,Clean Catch 02/18/24 00:00 Blood Culture - Preliminary Blood NEGATIVE TO DATE 02/18/24 00:00 Blood Culture - Preliminary Blood NEGATIVE TO DATE 02/18/24 20:50 Occult Blood (FIT) - Final Stool Routine Collection A&P Assessment and plan (1) NOLA (acute kidney injury): 63 yr old man 1. NOLA- D dx is broad- no hydronephrosis on renal ct scan -not post renal azotemia -Urinalysis reviewed, He is 3+ blood 5-10 RBCs however has aMorphous sediment, and 5-10 5 granular casts. Urinalysis also has urine sodium 96. I am concerned that most likely the patient has ATN. Renal function reviewed and creatinine maria g a little from 5.7 mg/dL to 6 mg/dL. However the rate of rise of his creatinine has significantly decreased. Awaiting the results of serologies and hepatitis panel Negative HIV test -Patient has mild anemia platelets are dropping. However haptoglobin is elevated. Await LDH and retake count. This is unlikely to be TTP HUS however would have someone review his smear Await SPEP results. For now hold on renal biopsy 2. Patient has an increase in and get metabolic acidosis. Will treat with lactated Ringer's for now. Most likely from acute kidney injury. 3. Hyponatremia 4. Replace potassium. 5. Monitor glucose. Please note that hemoglobin A1c was 5.9. 6. Patient with lymphadenopathy thrombocytopenia anemia renal failure ferritin of 33,270-I am concerned that the patient possibly have a malignancy or infection or macrophage activation syndrome, HLH. The patient denies having any transfusions. Patient had mild elevation of LFTs but is stable unlikely to be the cause of the ferritin of 33,000. 7. Replace vitamin D discussed w/ pt, RN, pts son Medications reviewed -Informed consent for telehealth obtained from pts family Plan see above Attestations Medical Necessity Statement*: Altered mental status, NOLA agree with LP. Thrombocytopenia. Evaluate for possible malignancy or HLH. Time Spent in Patient Care: Greater than 35 minutes Coding Level of Care Code Acute Code for [facility] Diagnoses NOLA (acute kidney injury) N17.9
[2024-02-19 11:02] LABS: Reticulocyte % 0.9 % (0.5-2.0)
[2024-02-19 11:34] LABS: LAB Peripheral Smear Sent for Review
[2024-02-19 11:43] LABS: Lactate Dehydrogenase 1216 U/L (135-225)
--- NOTE | 2024-02-19 13:27 | P.PN_ITS ---
Subjective 2 Subjective: No acute overnight events noted. He reports he is feeling better as compared to admission, and his neurological and mental status improved as compared to admission Medications: Reviewed: Yes Vitals/I&O/Wt Last Vital Signs Temp 97.5 F L 02/19/24 11:50 Pulse 87 02/19/24 11:50 Resp 20 H 02/19/24 11:50 BP 159/83 02/19/24 11:50 Pulse Ox 92 02/19/24 11:50 O2 Del Method Room Air 02/19/24 11:50 02/18/24 02/19/24 02/19/24 22:59 06:59 14:59 Intake Total 460 / 510 1295.5 / 1805.5 100 / 100 Output Total 1000 / 1000 Balance 460 / 510 295.5 / 805.5 100 / 100 Weight last 48 hrs Weight 83.206 kg Weight 83.206 kg Weight 82.917 kg Weight 83.915 kg Physical Exam 2 Narrative: He is alert awake oriented x 2 Chest clear to auscultation bilaterally Cardiovascular normal heart sounds Abdomen NAD Extremities bilateral trace lower extremity edema noted Urinary Catheter Management: Walton: Cath Placed During This Visit: yes Reason for Continuing Indwelling Catheter: Other Urinary Catheter Date of Insertion: 02/18/24 Urinary Catheter Time of Insertion: 21:00 Data 02/19/24 06:01 02/19/24 06:01 Micro: Microbiology 02/17/24 22:45 Urine Culture - Final Urine,Clean Catch 02/18/24 00:00 Blood Culture - Preliminary Blood NEGATIVE TO DATE 02/18/24 00:00 Blood Culture - Preliminary Blood NEGATIVE TO DATE 02/18/24 20:50 Occult Blood (FIT) - Final Stool Routine Collection A&P Assessment and plan (1) NOLA (acute kidney injury): (2) Acute encephalopathy: (3) Sepsis: (4) Liver dysfunction: (5) Lymphadenopathy: (6) Elevated lipase: Plan Acute encephalopathy likely secondary to combination of sepsis acute kidney injury liver dysfunction and dehydration. Will start on lactated Ringer at 60 mL/h Follow-up nephrology for further plan, no need for hemodialysis or kidney biopsy at this point Will follow-up serology and labs from nephrology point of view USG abdomen pelvis showed normal kidneys. Continue antibiotics IV linezolid hide, doxycycline and Zosyn for now to cover bacterial and atypicals Acute encephalopathy likely secondary to UTI. Patient seems more alert now and has been improving since admission. Will hold off on LP for now. Acute renal failure-will follow-up labs in a.m.. Nephrology consult appreciated Continue lactated Ringer for now. In view of anemia thrombocytopenia, lymphadenopathy and renal failure with serum ferritin of 33,000, patient possibly might have malignancy or lymphoma. Check peripheral smear for the same. Patient would need extensive workup for lymphadenopathy/anemia/thrombocytopenia as an outpatient. Given platelet count of 98,000, will hold off on lymph node biopsy for now. Family, son counseled and educated about the plan of care. Attestations 2 Medical Necessity Statement*: He needs continued hospitalization for management of acute renal failure, acute and encephalopathy and sepsis likely secondary to UTI Time Spent in Patient Care: 60 minutes Coding Level of Care Code Acute Code for [facility] Diagnoses NOLA (acute kidney injury) N17.9 Acute encephalopathy G93.40 Sepsis A41.9 Liver dysfunction K76.89 Lymphadenopathy R59.1 Elevated lipase R74.8 Time Spent (min) 60
[2024-02-19 15:28] LABS: Lyme AB Screen <0.90 index
[2024-02-19] MEDS: ergocalciferol (vitamin D2) 50,000 Unit Capsule 50000 UNIT PO (16:53)
[2024-02-20] VITALS (8 sets, daily range): BP systolic 120–156; BP diastolic 71–81; PULSE 77–91; RESP 16–19; TEMP 36.3–36.7; O2SAT 91–94
[2024-02-20] MEDS: doxycycline 100 MG in sodium chloride 0.9% (plus) 100 ML IV ×2 (01:55→13:42)
[2024-02-20] MEDS: enoxaparin 30 mg/0.3 mL Syringe SUBCUT (04:02)
[2024-02-20] MEDS: linezolid premix 600 MG/300 ML PREMIX 300 MG IV ×2 (04:02→15:11)
[2024-02-20 05:46] LABS: Basophils % 0.2 %; Eosinophils % 0.1 %; Hematocrit 30.5 % (37-53); Lymphocytes # 1.6 10^3/uL (0.8-4.8); Lymphocytes % 12.6 %; Mean Corpuscular HGB Conc 35.7 g/dL (30-55); Mean Corpuscular Hemoglobin 31.1 pg (27-33); Mean Corpuscular Volume 87.1 fl (82-101); Mean Platelet Volume 13.1 fL (7.4-10.4); Monocytes # 0.4 10^3/uL (0.2-0.9); Neutrophils # 10.71 10^3/uL (1.8-7.7); Neutrophils % 83.4 %; Nucleated Red Blood Cells % 0 %; Platelet Count 94 10^3/cmm (157-399); Red Cell Distribution Width 12.5 % (12.1-15.1); White Blood Count 12.83 10^3/uL (3.29-11.43)
[2024-02-20 05:49] LABS: Reticulocyte % 0.7 % (0.5-2.0)
[2024-02-20 06:04] LABS: Slide Review Slide Review Perform
[2024-02-20 06:05] LABS: Alanine Aminotransferase 64 U/L (0-41); Albumin Level 2.4 g/dL (3.5-5.2); Alkaline Phosphatase 63 U/L (40-130); Aspartate Amino Transferase 213 U/L (0-40); Carbon Dioxide 18 mmol/L (22-29); Chloride 92 mmol/L (98-107); Creatinine Clr Calc Pharmacy 15.3941; Globulin 2.5 g/dL (1.3-4.6); Glomerular Filtration Rate 9.8 mL/min (90-130); Glucose 162 mg/dL (65-115); Osmolality Calculated 299 mOsm/kg (285-295); Sodium 128 mmol/L (136-145); Total Bilirubin 0.6 mg/dL (0.15-1.2); Total Protein 4.9 g/dL (6.6-8.7)
[2024-02-20 06:06] LABS: Creatine Phosphokinase 202 U/L (39-308); Magnesium 2.5 mg/dL (1.7-2.3); Phosphorus 4.5 mg/dL (2.5-4.5)
[2024-02-20 06:24] LABS: Lipase 1065 U/L (13-60)
[2024-02-20 06:38] LABS: Blood Urea Nitrogen 94 mg/dL (8-23)
[2024-02-20 06:47] LABS: Ferritin 25766 ng/mL (30-400)
--- NOTE | 2024-02-20 07:38 | P.PN_ITS ---
Subjective 2 Subjective: Remains weak. Per his [id number] his mental status improves through the day. The patient knows that he is in [place]. He states he is eating and denies nausea vomiting fevers chills or shortness of breath. He is urinating. He denies change in weight. Medications: Reviewed: Yes Medication Review Details: Current Medications Acetaminophen (Acetaminophen 325 Mg Tablet) 650 mg PO Q6H PRN PRN Reason: Mild/Mod Pain Or Temp >/= 101 Acetaminophen (Acetaminophen 650 Mg Supp) 650 mg [place] Q4H PRN PRN Reason: MILD PAIN OR INCREASE TEMP Last Admin: 02/18/24 03:33 Dose: 650 mg Enoxaparin Sodium (Enoxaparin 30 Mg/0.3 Ml Syringe) 30 mg SUBCUT Q24H BUTR Last Admin: 02/20/24 04:02 Dose: 30 mg Ergocalciferol (Ergocalciferol (Vitamin D2) 50,000 Unit Capsule) 50,000 unit PO Q7D BURT Last Admin: 02/19/24 16:53 Dose: 50,000 unit Doxycycline Hyclate 100 mg/ (Sodium Chloride) 100 mls @ 100 mls/hr IV Q12H BURT; Protocol Last Infusion: 02/20/24 03:08 Dose: Infused Linezolid (Zyvox Premix) 600 mg in 300 mls @ 300 mls/hr IV Q12H BURT; Protocol Last Infusion: 02/20/24 05:22 Dose: Infused Piperacillin Sod/Tazobactam (Sod 3.375 gm/ Sodium Chloride) 50 mls @ 12.5 mls/hr IV Q12H BURT; Protocol Last Infusion: 02/20/24 01:19 Dose: Infused Ondansetron HCl (Ondansetron 2 Mg/Ml Sdv 2 Ml) 4 mg IVP Q8H PRN PRN Reason: vomiting, or N/V if npo Potassium Chloride (Potassium Chloride Er 20 Meq Tablet) 40 meq PO Q6H BURT Stop: 02/20/24 13:31 Vitals/I&O/Wt Last Vital Signs Temp 97.6 F 02/20/24 04:00 Pulse 90 02/20/24 04:00 Resp 17 02/20/24 04:00 BP 156/78 02/20/24 04:00 Pulse Ox 92 02/20/24 04:00 O2 Del Method Room Air 02/20/24 04:00 02/19/24 02/20/24 02/20/24 22:59 06:59 14:59 Intake Total 880 / 980 450 / 1430 Output Total 900 / 900 1000 / 1900 Balance -20 / 80 -550 / -470 Weight last 48 hrs Weight 86.296 kg Weight 83.206 kg Physical Exam 2 Narrative: comfortable in bed, awakens, follows commands. No apparent distress. vs noted hent- nc/at, eomi , anicteric neck supple lungs - dull bases and diminished b/l heart reg, positive S1-S2 abdomen soft, +BS ext + left > rt lower extremity edema neuro- a,a, o x 2, moving but weak. skin- no rash noted telehealth visit- examined by RN Urinary Catheter Management: Walton: Cath Placed During This Visit: yes Reason for Continuing Indwelling Catheter: Other Urinary Catheter Date of Insertion: 02/18/24 Urinary Catheter Time of Insertion: 21:00 Data 02/20/24 05:23 02/20/24 05:23 Micro: Microbiology 02/17/24 22:45 Urine Culture - Final Urine,Clean Catch A&P Assessment and plan (1) NOLA (acute kidney injury): 63 yr old man 1. NOLA- no hydronephrosis on renal ct scan -not post renal azotemia -Urinalysis reviewed, He is 3+ blood 5-10 RBCs however has aMorphous sediment, and 5-10 5 granular casts. Urinalysis also has urine sodium 96. I am concerned that most likely the patient has ATN. Renal function reviewed and creatinine maria g a little from 5.7 mg/dL to 6 mg/dL. Hopefully, his cr is plateauing. Awaiting the results of serologies and hepatitis panel Negative HIV test -Patient has mild anemia and thrombocytopenia. However haptoglobin is elevated. elevated LDH. This is unlikely to be TTP HUS however would have someone review his smear Await SPEP results. For now hold on renal biopsy -recommend a Lymph node bx, maybe liver or Bone marrow biopsy -no emergent need for dialysis 2. Patient has an increase Anion gap metabolic acidosis. . Most likely from acute kidney injury. 3. Hyponatremia- from nola and LR. d/c ivf. check urine electrolyes and cr and osmolality 4. Replace potassium. 5. Monitor glucose. Please note that hemoglobin A1c was 5.9. 6. Patient with lymphadenopathy thrombocytopenia anemia renal failure ferritin of 33,270-I am concerned that the patient possibly have a malignancy or infection or macrophage activation syndrome, HLH. The patient denies having any transfusions. Patient had mild elevation of LFTs but is stable unlikely to be the cause of the ferritin of 33,000.- [place] [id number]. would conside rLN and possible Bone marrow bx. 7. LP if possible for AMS 8. Replace vitamin D discussed w/ pt, RN, pts daughter in law Medications reviewed -Informed consent for telehealth obtained from pts family Plan see above Attestations 2 Medical Necessity Statement*: WEakness, hyponatremia, inc FErritin, NOLA, lymphadenopathy, thrombocytopenia and anemia Time Spent in Patient Care: Greater than 35 minutes Coding Level of Care Code Acute Code for Chg Fwd Diagnoses NOLA (acute kidney injury) N17.9
--- NOTE | 2024-02-20 07:48 | XR_ITS ---
WS: [id number] XR chest 1V portable [id number] REASON FOR EXAM: luis, lymphadenopathy, hyponatremia FINDINGS: Compared to the examination of 02/17/2024 the reticular interstitial opacities in the right lower lung have increased and there is now a component of patchy groundglass density. No other significant interval change in the chest. XR/XR chest 1V portable [id number] IMPRESSION: Progression of abnormality in the right lower lung, most likely pneumonitis.
[2024-02-20] MEDS: piperacillin-tazobactam 3.375 GM in sodium chloride 0.9% (plus) 50 ML IV ×2 (08:28→22:14)
[2024-02-20] MEDS: potassium chloride ER 20 mEq Tablet 40 MEQ PO ×2 (08:28→13:41)
[2024-02-20 10:29] LABS: KAPPA LIGHT CHAIN, FREE, SERUM 95.1 mg/L (3.3-19.4); KAPPA/LAMBDA LIGHT CHAINS FREE 1.21 (0.26-1.65); LAMBDA LIGHT CHAIN, FREE, SERU 78.9 mg/L (5.7-26.3)
--- NOTE | 2024-02-20 12:26 | P.PN_ITS ---
Subjective 2 Subjective: Remains weak. Per his [id number] his mental status improves through the day. The patient knows that he is in [place]. He states he is eating and denies nausea vomiting fevers chills or shortness of breath. He is urinating. He denies change in weight. Still has clouding of thoughts Medications: Reviewed: Yes Vitals/I&O/Wt Last Vital Signs Temp 97.4 F L 02/20/24 11:16 Pulse 85 02/20/24 11:16 Resp 17 02/20/24 11:16 BP 120/71 02/20/24 11:16 Pulse Ox 93 02/20/24 11:16 O2 Del Method Room Air 02/20/24 11:16 02/19/24 02/20/24 02/20/24 22:59 06:59 14:59 Intake Total 880 / 980 450 / 1430 Output Total 900 / 900 1000 / 1900 Balance -20 / 80 -550 / -470 Weight last 48 hrs Weight 86.296 kg Weight 83.206 kg Physical Exam 2 Narrative: He is alert awake oriented x 2 Chest clear to auscultation bilaterally Cardiovascular normal heart sounds Abdomen NAD Extremities bilateral trace lower extremity edema noted Urinary Catheter Management: Walton: Cath Placed During This Visit: yes Reason for Continuing Indwelling Catheter: Other Urinary Catheter Date of Insertion: 02/18/24 Urinary Catheter Time of Insertion: 21:00 Data 02/20/24 05:23 02/20/24 05:23 Micro: Microbiology 02/17/24 22:45 Urine Culture - Final Urine,Clean Catch A&P Assessment and plan (1) NOLA (acute kidney injury): (2) Acute encephalopathy: (3) Sepsis: (4) Liver dysfunction: (5) Lymphadenopathy: (6) Elevated lipase: Plan Acute encephalopathy likely secondary to combination of sepsis acute kidney injury liver dysfunction and dehydration. Currently being treated for UTI and right lower lobe pneumonia visible on chest x-ray today Will continue on lactated Ringer at 60 mL/h Follow-up nephrology for further plan, no need for hemodialysis or kidney biopsy at this point Will follow-up serology and labs from nephrology point of view Continue antibiotics IV linezolid hide, doxycycline and Zosyn for now to cover bacterial and atypicals Leukocytosis trending down hemoglobin stable at 10.9.Hemoccult negative. Patient seems more alert now and has been improving since admission. Will hold off on LP for now. Acute renal failure-creatinine trending down from 6.0-5.9 will follow-up labs in a.m.. Nephrology consult appreciated Continue lactated Ringer for now. In view of anemia thrombocytopenia, lymphadenopathy and renal failure with serum ferritin of 33,000, patient possibly might have malignancy or lymphoma. . Patient would need extensive workup for lymphadenopathy/anemia/thrombocytopenia as an outpatient. Given platelet count of 94,000, will hold off on lymph node biopsy for now or LP for now.. Family, son counseled and educated about the plan of care. Pt eval and treat. Renal nondialysis diet DVT prophylaxis with Lovenox He is full code for now Attestations 2 Medical Necessity Statement*: He needs continued hospitalization for management of acute renal failure, acute and encephalopathy and sepsis likely secondary to UTI/Pneumonia Time Spent in Patient Care: 20minutes Coding Level of Care Code Acute Code for g Fwd Diagnoses NOLA (acute kidney injury) N17.9 Acute encephalopathy G93.40 Sepsis A41.9 Liver dysfunction K76.89 Lymphadenopathy R59.1 Elevated lipase R74.8 Time Spent (min) 20
[2024-02-20 13:19] LABS: PROTEIN, TOTAL 4.9 g/dL (6.1-8.1)
[2024-02-20 13:44] LABS: Anti-Double Strand DNA AB <1 IU/mL; Anti-streptolysin O 125 IU/mL (<200)
[2024-02-20 14:34] LABS: Potassium, Radom Urine 13 mmol/L; Urine Creatinine 51 mg/dL (39-259); Urine Random Chloride 26 mmol/L; Urine Random Sodium 33 mmol/L
[2024-02-20 15:00] LABS: Bacteria Urine 1+ /hpf; Bilirubin Urine Neg (Negative); Blood Urine 3+ (Negative); Glucose Urine UA Norm (Normal); Ketones Urine 1+ (Negative); Leukocyte Esterase Urine 2+ (Negative); Mucus Urine 1+ /hpf; Nitrate Urine Negative (Negative); Protein Urine 1+ (Negative); RBC Urine 0-4 /hpf (0-2); Squamous Epithelial Cell Urine 0-4 /hpf (0-5); Urine Appearance Cloudy (CLEAR); Urine Color Yellow (Yellow); Urobilinogen Urine Norm (Negative); WBC Urine 0-4 /hpf (0-5); pH Urine 5 (5-7)
[2024-02-20 15:01] LABS: Amorphous Sediment Urine 1+ /hpf; Fine Granular Casts Urine 0-4 /lpf; Hyaline Casts Urine RARE /lpf
[2024-02-20 15:50] LABS: Anti-Nuclear Antibody Screen NEGATIVE (NEGATIVE)
[2024-02-21] VITALS (7 sets, daily range): BP systolic 127–151; BP diastolic 71–77; PULSE 73–86; RESP 16–18; TEMP 36.4–36.8; O2SAT 94–96
[2024-02-21] MEDS: enoxaparin 30 mg/0.3 mL Syringe SUBCUT (02:01)
[2024-02-21] MEDS: doxycycline 100 MG in sodium chloride 0.9% (plus) 100 ML IV ×2 (02:02→15:33)
[2024-02-21] MEDS: linezolid premix 600 MG/300 ML PREMIX 300 MG IV ×2 (03:16→15:33)
[2024-02-21 06:24] LABS: Basophils % 0.1 %; Eosinophils % 0.2 %; Hematocrit 30.2 % (37-53); Lymphocytes # 1.6 10^3/uL (0.8-4.8); Lymphocytes % 18.3 %; Mean Corpuscular HGB Conc 35.4 g/dL (30-55); Mean Corpuscular Hemoglobin 30.9 pg (27-33); Mean Corpuscular Volume 87.3 fl (82-101); Mean Platelet Volume 12.1 fL (7.4-10.4); Monocytes # 0.3 10^3/uL (0.2-0.9); Monocytes % 3.8 %; Neutrophils # 6.86 10^3/uL (1.8-7.7); Neutrophils % 77.2 %; Nucleated Red Blood Cells % 0 %; Platelet Count 115 10^3/cmm (157-399); Red Blood Count 3.46 10^6/uL (3.85-5.65); Red Cell Distribution Width 12.7 % (12.1-15.1)
[2024-02-21 06:44] LABS: Creatine Phosphokinase 72 U/L (39-308); Magnesium 2.8 mg/dL (1.7-2.3); Phosphorus 4.8 mg/dL (2.5-4.5)
[2024-02-21 06:45] LABS: Alanine Aminotransferase 94 U/L (0-41); Albumin Level 2.3 g/dL (3.5-5.2); Alkaline Phosphatase 62 U/L (40-130); Anion Gap 18.9 (5-19); Aspartate Amino Transferase 246 U/L (0-40); Calcium 6.9 mg/dL (8.5-10.5); Carbon Dioxide 20 mmol/L (22-29); Chloride 96 mmol/L (98-107); Creatinine Clr Calc Pharmacy 15.0638; Glomerular Filtration Rate 9.6 mL/min (90-130); Glucose 118 mg/dL (65-115); Osmolality Calculated 303 mOsm/kg (285-295); Sodium 132 mmol/L (136-145); Total Bilirubin 0.5 mg/dL (0.15-1.2); Total Protein 5.3 g/dL (6.6-8.7)
[2024-02-21 06:57] LABS: Lipase 826 U/L (13-60)
[2024-02-21 07:15] LABS: Blood Urea Nitrogen 90 mg/dL (8-23); Potassium 2.9 mmol/L (3.5-5.1)
--- NOTE | 2024-02-21 07:57 | P.PN_ITS ---
Subjective 2 Subjective: feels better. more awake, alert, oriented. no n/v/f/c/victoria/d Medications: Reviewed: Yes Medication Review Details: Current Medications Acetaminophen (Acetaminophen 325 Mg Tablet) 650 mg PO Q6H PRN PRN Reason: Mild/Mod Pain Or Temp >/= 101 Acetaminophen (Acetaminophen 650 Mg Supp) 650 mg [place] Q4H PRN PRN Reason: MILD PAIN OR INCREASE TEMP Last Admin: 02/18/24 03:33 Dose: 650 mg Enoxaparin Sodium (Enoxaparin 30 Mg/0.3 Ml Syringe) 30 mg SUBCUT Q24H BURT Last Admin: 02/21/24 02:01 Dose: 30 mg Ergocalciferol (Ergocalciferol (Vitamin D2) 50,000 Unit Capsule) 50,000 unit PO Q7D BURT Last Admin: 02/19/24 16:53 Dose: 50,000 unit Doxycycline Hyclate 100 mg/ (Sodium Chloride) 100 mls @ 100 mls/hr IV Q12H BURT; Protocol Last Infusion: 02/21/24 03:13 Dose: Infused Linezolid (Zyvox Premix) 600 mg in 300 mls @ 300 mls/hr IV Q12H BURT; Protocol Last Infusion: 02/21/24 04:54 Dose: Infused Piperacillin Sod/Tazobactam (Sod 3.375 gm/ Sodium Chloride) 50 mls @ 12.5 mls/hr IV Q12H BURT; Protocol Last Infusion: 02/21/24 02:11 Dose: Infused Ondansetron HCl (Ondansetron 2 Mg/Ml Sdv 2 Ml) 4 mg IVP Q8H PRN PRN Reason: vomiting, or N/V if npo Vitals/I&O/Wt Last Vital Signs Temp 98.0 F 02/21/24 07:43 Pulse 81 02/21/24 07:43 Resp 17 02/21/24 07:43 BP 151/77 02/21/24 07:43 Pulse Ox 95 02/21/24 07:43 O2 Del Method Room Air 02/21/24 07:43 02/20/24 02/21/24 02/21/24 22:59 06:59 14:59 Intake Total 540 / 1690 450 / 2140 Output Total 1000 / 1800 500 / 2300 Balance -460 / -110 -50 / -160 Weight last 48 hrs Weight 85.275 kg Weight 86.296 kg Physical Exam 2 Narrative: comfortable in bed, awakens, alert, joking. No apparent distress. vs noted hent- nc/at, eomi , anicteric neck supple lungs - clear b/l heart reg, positive S1-S2 abdomen soft, +BS ext + left > rt lower extremity edema improving neuro- a,a, o x 3, improved strength skin- no rash noted telehealth visit- examined by RN Urinary Catheter Management: Walton: Cath Placed During This Visit: yes Reason for Continuing Indwelling Catheter: Accurate Measurement of Urinary Output in Critically Ill Patients Urinary Catheter Date of Insertion: 02/18/24 Urinary Catheter Time of Insertion: 21:00 Data 02/21/24 06:07 02/21/24 06:07 A&P Assessment and plan (1) NOLA (acute kidney injury): 63 yr old man 1. NOLA- no hydronephrosis on renal ct scan -not post renal azotemia -Urinalysis reviewed, He is 3+ blood 5-10 RBCs however has aMorphous sediment, and 5-10 5 granular casts. Urinalysis also has urine sodium 96. I am concerned that most likely the patient has ATN. Renal function reviewed and creatinine maria g a little from 5.7 mg/dL to 6 mg/dL. Hopefully, his cr is plateauing. Awaiting the results of serologies and hepatitis panel normal free light chains Negative HIV test For now hold on renal biopsy -recommend a Lymph node bx, maybe liver or Bone marrow biopsy -no emergent need for dialysis 2. Patient has an increase Anion gap metabolic acidosis. is improving . Most likely from acute kidney injury. 3. Hyponatremia- from nola and LR. d/c ivf. is improving 4. Replace potassium. 5. Monitor glucose. Please note that hemoglobin A1c was 5.9. 6. Patient with lymphadenopathy thrombocytopenia anemia renal failure ferritin of 33,270-I am concerned that the patient possibly have a malignancy or infection or macrophage activation syndrome, HLH. The patient denies having any transfusions. Patient had mild elevation of LFTs but is stable unlikely to be the cause of the ferritin of 33,000.- [place] [id number]. would conside rLN and possible Bone marrow bx. 7. plts are improving 8. Replace vitamin D discussed w/ pt, RN, pts daughter in law Medications reviewed -Informed consent for telehealth obtained from pts family Plan see above Attestations 2 Medical Necessity Statement*: fluids, give k Time Spent in Patient Care: 16 - 35 minutes Coding Level of Care Code Acute Code for Chg Fwd Diagnoses NOLA (acute kidney injury) N17.9
[2024-02-21 09:07] LABS: Hepatitis B Core AB, Total Non-Reactive (Nonreactive); Hepatitis B Surface AB < 3.5 (11.5-1000); Hepatitis B Surface Antigen Non-Reactive (Nonreactive); Hepatitis C Virus Antibody Non-Reactive (Nonreactive)
[2024-02-21] MEDS: potassium chloride ER 20 mEq Tablet 40 MEQ PO ×2 (09:12→15:32)
[2024-02-21] MEDS: sodium chloride 0.9% 1,000 ML 75 ML IV (09:12)
[2024-02-21] MEDS: piperacillin-tazobactam 3.375 GM in sodium chloride 0.9% (plus) 50 ML IV ×2 (09:21→21:59)
--- NOTE | 2024-02-21 14:11 | P.PN_ITS ---
Subjective 2 Subjective: No acute overnight events noted. He reports he is feeling better as compared to admission, and his neurological and mental status improved as compared to admission Medications: Reviewed: Yes Vitals/I&O/Wt Last Vital Signs Temp 97.5 F L 02/21/24 11:10 Pulse 80 02/21/24 11:10 Resp 16 02/21/24 11:10 BP 145/73 02/21/24 11:10 Pulse Ox 95 02/21/24 11:10 O2 Del Method Room Air 02/21/24 11:10 02/20/24 02/21/24 02/21/24 22:59 06:59 14:59 Intake Total 540 / 1690 450 / 2140 290 / 290 Output Total 1000 / 1800 500 / 2300 Balance -460 / -110 -50 / -160 290 / 290 Weight last 48 hrs Weight 85.275 kg Weight 86.296 kg Physical Exam 2 Narrative: He is alert awake oriented x 2 Chest clear to auscultation bilaterally Cardiovascular normal heart sounds Abdomen NAD Extremities bilateral trace lower extremity edema noted Urinary Catheter Management: Walton: Cath Placed During This Visit: yes Reason for Continuing Indwelling Catheter: Accurate Measurement of Urinary Output in Critically Ill Patients Urinary Catheter Date of Insertion: 02/18/24 Urinary Catheter Time of Insertion: 21:00 Data 02/21/24 06:07 02/21/24 06:07 A&P Assessment and plan (1) NOLA (acute kidney injury): (2) Acute encephalopathy: (3) Sepsis: (4) Liver dysfunction: (5) Lymphadenopathy: (6) Elevated lipase: Plan Acute encephalopathy likely secondary to combination of sepsis acute kidney injury liver dysfunction and dehydration. Currently being treated for UTI and right lower lobe pneumonia visible on chest x-ray today Will continue on lactated Ringer at 60 mL/h Follow-up nephrology for further plan, no need for hemodialysis or kidney biopsy at this point Will follow-up serology and labs from nephrology point of view Continue antibiotics IV linezolid , doxycycline and Zosyn for now to cover bacterial and atypicals Leukocytosis resolved hemoglobin stable at 10.7.Hemoccult negative. Patient seems more alert now and has been improving since admission. Acute renal failure-creatinine stable at 6 Free kappa and lambda elevated, follow-up nephrology Continue lactated Ringer for now. In view of anemia thrombocytopenia, lymphadenopathy and renal failure with serum ferritin of 33,000, patient possibly might have malignancy or lymphoma. . Patient would need extensive workup for lymphadenopathy/anemia/thrombocytopenia as an outpatient. Platelet count improved to 115, will discuss with family about possible left groin lymph node excisional biopsy Surgery consult for the same Family, son counseled and educated about the plan of care. Pt eval and treat. Renal nondialysis diet DVT prophylaxis with Lovenox He is full code for now Attestations 2 Medical Necessity Statement*: He needs continued hospitalization for management of acute renal failure, acute encephalopathy and sepsis likely secondary to UTI/Pneumonia Time Spent in Patient Care: 20minutes Coding Level of Care Code Acute Code for Chg Fwd Diagnoses NOLA (acute kidney injury) N17.9 Acute encephalopathy G93.40 Sepsis A41.9 Liver dysfunction K76.89 Lymphadenopathy R59.1 Elevated lipase R74.8 Time Spent (min) 20
[2024-02-21 15:10] LABS: Glomerular Bsmt Membrane IGG <1.0 AI
[2024-02-21 16:19] LABS: Osmolality Urine 302 mOsm/kg (50-1200)
--- NOTE | 2024-02-21 17:10 | P.CONIM_ITS ---
Providers/Reason For Consult 2 Consulting Physician/Specialty*: General surgery Reason for Consult*: Ablation for possible lymph node biopsy Attending Physician: Nighat Rob MD History of Present Illness History of Present Illness Joanna Mascorro is a 63 year old male who was admitted to the hospital due to altered mental status sepsis and acute kidney injury. CAT scan done upon admission showed evidence of significant lymphadenopathy in the retroperitoneum and also some lymph nodes on the left groin. I was consulted for evaluation for possible biopsy of 1 of these lymph nodes for pathology call diagnosis to rule of lymphoma as well as for cultures Review of Systems 2 General: Reports: 10 or more systems reviewed and unremarkable except in HPI and below Medications/Allergies Home Medications Medication Instructions Recorded Confirmed Last Taken Type No Known Home Medications 02/18/24 02/18/24 Unknown History Allergies Allergy/AdvReac Type Severity Reaction Status Date / Time No Known Allergies Allergy Verified 02/17/24 20:36 Current Medications Generic Name Dose Route Start Last Admin Trade Name Freq PRN Reason Stop Dose Admin Acetaminophen 650 mg 02/18/24 03:22 02/18/24 03:33 Acetaminophen 650 Mg Supp CO 650 mg Q4H PRN Administration MILD PAIN OR INCREASE TEMP Enoxaparin Sodium 30 mg 02/18/24 02:30 02/21/24 02:01 Enoxaparin 30 Mg/0.3 Ml Syringe SUBCUT 30 mg Q24H BURT Administration Ergocalciferol 50,000 unit 02/19/24 14:15 02/19/24 16:53 Ergocalciferol (Vitamin D2) 50,000 Unit Capsule PO 50,000 unit Q7D BURT Administration Doxycycline Hyclate 100 mg/ 100 mls @ 100 mls/hr 02/18/24 01:45 02/21/24 16:48 Sodium Chloride IV Infused Q12H BURT Infusion Protocol Linezolid 600 mg in 300 mls @ 300 mls/hr 02/18/24 03:15 02/21/24 16:48 Zyvox Premix IV Infused Q12H BURT Infusion Protocol Piperacillin Sod/Tazobactam 50 mls @ 12.5 mls/hr 02/18/24 09:15 02/21/24 13:32 Sod 3.375 gm/ Sodium Chloride IV Infused Q12H BURT Infusion Protocol Sodium Chloride 1,000 mls @ 75 mls/hr 02/21/24 08:15 02/21/24 09:12 Sodium Chloride 0.9% IV 75 mls/hr .[id number] BURT Administration Vitals/I&O/Wt Last Vital Signs Temp 97.5 F L 02/21/24 11:10 Pulse 80 02/21/24 11:10 Resp 16 02/21/24 11:10 BP 145/73 02/21/24 11:10 Pulse Ox 95 02/21/24 11:10 O2 Del Method Room Air 02/21/24 11:10 02/21/24 02/21/24 02/21/24 06:59 14:59 22:59 Intake Total 450 / 2140 290 / 290 400 / 690 Output Total 500 / 2300 Balance -50 / -160 290 / 290 400 / 690 Weight last 48 hrs Weight 188 lb Weight 190 lb 4 oz Physical Exam 2 Narrative: General : Patient is well developed , no acute distress, oriented x3 Head : Normal cephalic, a-traumatic. Nose : Mucous membranes are without erythema. Lungs : Equal chest rise bilaterally, no use of accessory muscles, trachea is midline. CV : Rate and rhythm are normal. Abdomen : Soft, ND, NT, no g/r/m Extremities : Bilateral groins were evaluated, no palpable lymph nodes were able to be identified in both groins. Back : non-tender to palpation, no CVA tenderness. Urinary Catheter Management: Walton: Cath Placed During This Visit: yes Reason for Continuing Indwelling Catheter: Accurate Measurement of Urinary Output in Critically Ill Patients Urinary Catheter Date of Insertion: 02/18/24 Urinary Catheter Time of Insertion: 21:00 Data 02/21/24 06:07 02/21/24 06:07 A&P Assessment and plan (1) Lymphadenopathy: Plan After complete history, physical examination and review of all available clinical data the following is my assessment. I was not able to identified any palpable nodes during my physical examination of his groins, this may indicate that lymphadenopathy is resolving and probable reactive in nature. In order for me to proceed with the excisional lymph node biopsy a palpable node needs to be identified. Since this is not the case, I would recommend that we proceed with ultrasound-guided biopsy of one of the nodes in the groin if indicated by the medical team. It can also be an alternative just to observe obtain some follow- up imaging in around 4 weeks and if at this point there is persistent of the nodes it would be reasonable to proceed with more aggressive intervention. Otherwise patient appears to be clinically improving, white count has normalized, kidney function appears to be stable at this point patient is very to improve in the following days. I will defer all other care to primary team. -No palpable nodes noted on the groin during my physical examination -No surgical intervention will be recommended at this time -Consider ultrasound-guided lymph node biopsy as needed, alternatively after 4 weeks patient can get the ultrasound of the groin to evaluate for persistent nodes and the need for excision or biopsy. Coding Level of Care Code Acute Code for Chg Fwd Diagnoses Lymphadenopathy R59.1
[2024-02-22] VITALS (9 sets, daily range): BP systolic 132–167; BP diastolic 76–91; PULSE 71–88; RESP 16–18; TEMP 36.3–36.6; O2SAT 94–97; BMI 23.8
[2024-02-22] MEDS: doxycycline 100 MG in sodium chloride 0.9% (plus) 100 ML IV ×2 (02:15→14:48)
[2024-02-22] MEDS: sodium chloride 0.9% 1,000 ML 75 ML IV ×2 (02:20→16:53)
[2024-02-22] MEDS: enoxaparin 30 mg/0.3 mL Syringe SUBCUT (02:21)
[2024-02-22] MEDS: linezolid premix 600 MG/300 ML PREMIX 300 MG IV ×2 (03:26→16:53)
[2024-02-22 06:41] LABS: Basophils % 0.2 %; Eosinophils # 0.1 10^3/uL (0.0-0.8); Eosinophils % 0.8 %; Hematocrit 32.1 % (37-53); Lymphocytes # 1.8 10^3/uL (0.8-4.8); Mean Corpuscular HGB Conc 33.3 g/dL (30-55); Mean Corpuscular Hemoglobin 30.8 pg (27-33); Mean Corpuscular Volume 92.5 fl (82-101); Mean Platelet Volume 11.9 fL (7.4-10.4); Monocytes # 0.4 10^3/uL (0.2-0.9); Monocytes % 3.9 %; Neutrophils # 7.71 10^3/uL (1.8-7.7); Neutrophils % 76.5 %; Nucleated Red Blood Cells % 0 %; Platelet Count 131 10^3/cmm (157-399); Red Blood Count 3.47 10^6/uL (3.85-5.65); Red Cell Distribution Width 12.9 % (12.1-15.1); White Blood Count 10.07 10^3/uL (3.29-11.43)
[2024-02-22 07:01] LABS: Magnesium 2.8 mg/dL (1.7-2.3); Phosphorus 4.3 mg/dL (2.5-4.5)
[2024-02-22 07:02] LABS: Alanine Aminotransferase 113 U/L (0-41); Albumin Level 2.5 g/dL (3.5-5.2); Alkaline Phosphatase 72 U/L (40-130); Anion Gap 18.5 (5-19); Aspartate Amino Transferase 213 U/L (0-40); Calcium 7.2 mg/dL (8.5-10.5); Carbon Dioxide 19 mmol/L (22-29); Chloride 105 mmol/L (98-107); Creatinine Clr Calc Pharmacy 16.9643; Glucose 122 mg/dL (65-115); Osmolality Calculated 317 mOsm/kg (285-295); Potassium 3.5 mmol/L (3.5-5.1); Sodium 139 mmol/L (136-145); Total Bilirubin 0.4 mg/dL (0.15-1.2); Total Protein 5.5 g/dL (6.6-8.7)
[2024-02-22 07:07] LABS: Blood Urea Nitrogen 91 mg/dL (8-23)
[2024-02-22 07:42] LABS: Slide Review Slide Review Perform
[2024-02-22 08:33] LABS: Ferritin > 8095 ng/mL (30-400)
--- NOTE | 2024-02-22 09:13 | PM.PN ---
Subjective Subjective: feels better. eating, drinking, no n/v/f/c/victoria/d/sob Medications: Reviewed: Yes Medication Review Details: Current Medications Acetaminophen (Acetaminophen 325 Mg Tablet) 650 mg PO Q6H PRN PRN Reason: Mild/Mod Pain Or Temp >/= 101 Acetaminophen (Acetaminophen 650 Mg Supp) 650 mg [place] Q4H PRN PRN Reason: MILD PAIN OR INCREASE TEMP Last Admin: 02/18/24 03:33 Dose: 650 mg Enoxaparin Sodium (Enoxaparin 30 Mg/0.3 Ml Syringe) 30 mg SUBCUT Q24H BURT Last Admin: 02/22/24 02:21 Dose: 30 mg Ergocalciferol (Ergocalciferol (Vitamin D2) 50,000 Unit Capsule) 50,000 unit PO Q7D BURT Last Admin: 02/19/24 16:53 Dose: 50,000 unit Doxycycline Hyclate 100 mg/ (Sodium Chloride) 100 mls @ 100 mls/hr IV Q12H BURT; Protocol Last Infusion: 02/22/24 03:25 Dose: Infused Linezolid (Zyvox Premix) 600 mg in 300 mls @ 300 mls/hr IV Q12H BURT; Protocol Last Infusion: 02/22/24 04:26 Dose: Infused Piperacillin Sod/Tazobactam (Sod 3.375 gm/ Sodium Chloride) 50 mls @ 12.5 mls/hr IV Q12H BURT; Protocol Last Infusion: 02/22/24 01:09 Dose: Infused Sodium Chloride (Sodium Chloride 0.9%) 1,000 mls @ 75 mls/hr IV .[id number] BURT Last Admin: 02/22/24 02:20 Dose: 75 mls/hr Ondansetron HCl (Ondansetron 2 Mg/Ml Sdv 2 Ml) 4 mg IVP Q8H PRN PRN Reason: vomiting, or N/V if npo Vitals/I&O/Wt Last Vital Signs Temp 97.7 F 02/22/24 08:00 Pulse 84 02/22/24 08:00 Resp 16 02/22/24 08:00 BP 132/77 02/22/24 08:00 Pulse Ox 94 02/22/24 08:00 O2 Del Method Room Air 02/21/24 11:10 0602/22/24 02/22/24 22:59 06:59 14:59 Intake Total 1959 / 0 1050 / 3300 Output Total 1949 / 1949 700 / 2650 Balance 350 / 650 Weight last 48 hrs Weight 84.187 kg Weight 84.187 kg Weight 85.275 kg Physical Exam Narrative: comfortable in bed, awakens, alert. No apparent distress. vs noted hent- nc/at, eomi , anicteric neck supple lungs - clear b/l heart reg, positive S1-S2 abdomen soft, +BS ext- lower extremity edema improving neuro- a,a, o x 3, improved strength skin- no rash noted telehealth visit- examined by RN Urinary Catheter Management: Walton: Cath Placed During This Visit: yes Reason for Continuing Indwelling Catheter: Other Urinary Catheter Date of Insertion: 02/18/24 Urinary Catheter Time of Insertion: 21:00 Data 02/22/24 06:21 02/22/24 06:21 A&P Assessment and plan (1) NOLA (acute kidney injury): 63 yr old man 1. NOLA- no hydronephrosis on renal ct scan -not post renal azotemia -Urinalysis reviewed, He is 3+ blood 5-10 RBCs however has aMorphous sediment, and 5-10 5 granular casts. Urinalysis also has urine sodium 96. I am concerned that most likely the patient has ATN. Renal function reviewed and creatinine is starting to improve Awaiting the results of serologies and hepatitis panel normal free light chains Negative HIV test For now hold on renal biopsy -monitor renal function -if continues to improve, then can d/c tomorrow and will need close follow up 2. Patient has an increase Anion gap metabolic acidosis. is improving . Most likely from acute kidney injury. is improving 3. Hyponatremia- from nola and LR. improved 4. Replace potassium, is improving 5. Monitor glucose. Please note that hemoglobin A1c was 5.9. 6. ferritin, lftys, and lymphadenopathy is slowly improving 7. plts are improving 8. Replace vitamin D discussed w/ pt, RN, and Dr Medications reviewed -Informed consent for telehealth obtained from pt Plan see above Attestations Medical Necessity Statement*: nola improving, inc lft's, infection, lymphadenopathy Time Spent in Patient Care: 16 - 35 minutes Coding Level of Care Code Acute Code for [facility] Fwd Diagnoses NOLA (acute kidney injury) N17.9
[2024-02-22] MEDS: piperacillin-tazobactam 3.375 GM in sodium chloride 0.9% (plus) 50 ML IV ×2 (10:35→21:54)
[2024-02-22 12:35] LABS: Vit D 1,25 (Oh)2, Total 65 pg/mL (18-72); Vit D2 1,25 (Oh)2 <8 pg/mL; Vit D3 1,25 (Oh)2 65 pg/mL
[2024-02-22 12:44] LABS: ALBUMIN 2.1 g/dL (3.8-4.8); ALPHA 1 GLOBULIN 0.6 g/dL (0.2-0.3); ALPHA 2 GLOBULIN 0.8 g/dL (0.5-0.9); BETA 1 GLOBULIN 0.3 g/dL (0.4-0.6); BETA 2 GLOBULIN 0.4 g/dL (0.2-0.5); GAMMA GLOBULIN 0.7 g/dL (0.8-1.7)
--- NOTE | 2024-02-22 13:56 | P.PN_ITS ---
Subjective 2 Subjective: No acute overnight events noted. He continues to feel better and is afebrile Medications: Reviewed: Yes Vitals/I&O/Wt Last Vital Signs Temp 97.8 F 02/22/24 12:00 Pulse 75 02/22/24 12:00 Resp 16 02/22/24 12:00 BP 167/91 02/22/24 12:00 Pulse Ox 97 02/22/24 12:00 O2 Del Method Room Air 02/21/24 11:10 02/21/24 02/22/24 02/22/24 22:59 06:59 14:59 Intake Total 1960 / 2250 1050 / 3300 720 / 720 Output Total 1950 / 1950 700 / 2650 Balance 10 / 300 350 / 650 720 / 720 Weight last 48 hrs Weight 84.187 kg Weight 84.187 kg Weight 85.275 kg Physical Exam 2 Narrative: He is alert awake oriented x 2 Chest clear to auscultation bilaterally Cardiovascular normal heart sounds Abdomen NAD Extremities bilateral trace lower extremity edema noted Urinary Catheter Management: Walton: Cath Placed During This Visit: yes Reason for Continuing Indwelling Catheter: Accurate Measurement of Urinary Output in Critically Ill Patients Urinary Catheter Date of Insertion: 02/18/24 Urinary Catheter Time of Insertion: 21:00 Data 02/22/24 06:21 02/22/24 06:21 A&P Assessment and plan (1) NOLA (acute kidney injury): (2) Acute encephalopathy: (3) Sepsis: (4) Liver dysfunction: (5) Lymphadenopathy: (6) Elevated lipase: Plan Acute encephalopathy likely secondary to combination of sepsis acute kidney injury liver dysfunction and dehydration resolving Currently being treated for UTI and right lower lobe pneumonia visible on chest x-ray today Follow-up nephrology for further plan, no need for hemodialysis or kidney biopsy at this point Will follow-up serology and labs from nephrology point of view Continue antibiotics IV linezolid , doxycycline and Zosyn for now to cover bacterial and atypicals Leukocytosis resolved hemoglobin stable at 10.7.Hemoccult negative. Patient seems more alert now and has been improving since admission. Acute renal failure-creatinine trending down to 5.3 Free kappa and lambda elevated, but not significant follow-up nephrology Continue normal saline for now. Platelet count improved to 131. Surgery consult appreciated yesterday, as per surgery there was no palpable left groin lymphadenopathy accessible for possible excisional biopsy, hence lymphadenopathy could be likely infectious and resolving with current antibiotics. Plan to continue antibiotics for few weeks with repeat CT abdomen pelvis to assess for resolution of lymphadenopathy. If there is persistence, would need further workup for malignancy versus lymphoma Family, son counseled and educated about the plan of care. Renal nondialysis diet DVT prophylaxis with Lovenox He is full code for now Anticipatory discharge planning for tomorrow morning Attestations 2 Medical Necessity Statement*: He needs continued hospitalization for management of acute renal failure, and UTI/Pneumonia Time Spent in Patient Care: 15minutes Coding Level of Care Code Acute Code for Chg Fwd Diagnoses NOLA (acute kidney injury) N17.9 Acute encephalopathy G93.40 Sepsis A41.9 Liver dysfunction K76.89 Lymphadenopathy R59.1 Elevated lipase R74.8 Time Spent (min) 15
[2024-02-22 15:14] LABS: ANCA Screen NEGATIVE (NEGATIVE)
[2024-02-23] VITALS (9 sets, daily range): BP systolic 135–150; BP diastolic 70–82; PULSE 70–94; RESP 16–19; TEMP 36.4–36.9; O2SAT 94–96
[2024-02-23] MEDS: doxycycline 100 MG in sodium chloride 0.9% (plus) 100 ML IV ×2 (02:20→15:02)
[2024-02-23] MEDS: enoxaparin 30 mg/0.3 mL Syringe SUBCUT (03:15)
[2024-02-23] MEDS: linezolid premix 600 MG/300 ML PREMIX 300 MG IV ×2 (03:15→16:38)
[2024-02-23 05:46] LABS: Alanine Aminotransferase 121 U/L (0-41); Albumin Level 2.2 g/dL (3.5-5.2); Alkaline Phosphatase 82 U/L (40-130); Calcium 7.3 mg/dL (8.5-10.5); Carbon Dioxide 16 mmol/L (22-29); Chloride 105 mmol/L (98-107); Creatinine Clr Calc Pharmacy 18.9362; Globulin 3.1 g/dL (1.3-4.6); Glomerular Filtration Rate 12.4 mL/min (90-130); Glucose 134 mg/dL (65-115); Magnesium 2.6 mg/dL (1.7-2.3); Osmolality Calculated 310 mOsm/kg (285-295); Phosphorus 4.2 mg/dL (2.5-4.5); Sodium 137 mmol/L (136-145); Total Bilirubin 0.4 mg/dL (0.15-1.2); Total Protein 5.3 g/dL (6.6-8.7)
[2024-02-23 05:47] LABS: Blood Urea Nitrogen 81 mg/dL (8-23)
[2024-02-23 05:51] LABS: Anion Gap 19.7 (5-19); Aspartate Amino Transferase 183 U/L (0-40); Potassium 3.7 mmol/L (3.5-5.1)
[2024-02-23 06:13] LABS: Ferritin 5248 ng/mL (30-400)
[2024-02-23] MEDS: sodium chloride 0.9% 1,000 ML 75 ML IV ×2 (10:04→21:16)
[2024-02-23] MEDS: piperacillin-tazobactam 3.375 GM in sodium chloride 0.9% (plus) 50 ML IV ×2 (10:05→21:16)
--- NOTE | 2024-02-23 10:12 | PM.PN ---
Subjective Subjective: feels better. is hungry. no n/v/f/cp/victoria/ + mild edema and diarrhea/ nausea from abx Medications: Reviewed: Yes Medication Review Details: Current Medications Acetaminophen (Acetaminophen 325 Mg Tablet) 650 mg PO Q6H PRN PRN Reason: Mild/Mod Pain Or Temp >/= 101 Acetaminophen (Acetaminophen 650 Mg Supp) 650 mg SC Q4H PRN PRN Reason: MILD PAIN OR INCREASE TEMP Last Admin: 02/18/24 03:33 Dose: 650 mg Enoxaparin Sodium (Enoxaparin 30 Mg/0.3 Ml Syringe) 30 mg SUBCUT Q24H BURT Last Admin: 02/23/24 03:15 Dose: 30 mg Ergocalciferol (Ergocalciferol (Vitamin D2) 50,000 Unit Capsule) 50,000 unit PO Q7D BURT Last Admin: 02/19/24 16:53 Dose: 50,000 unit Doxycycline Hyclate 100 mg/ (Sodium Chloride) 100 mls @ 100 mls/hr IV Q12H BURT; Protocol Last Infusion: 02/23/24 03:23 Dose: Infused Linezolid (Zyvox Premix) 600 mg in 300 mls @ 300 mls/hr IV Q12H BURT; Protocol Last Infusion: 02/23/24 05:16 Dose: Infused Piperacillin Sod/Tazobactam (Sod 3.375 gm/ Sodium Chloride) 50 mls @ 12.5 mls/hr IV Q12H BURT; Protocol Last Admin: 02/23/24 10:05 Dose: 12.5 mls/hr Sodium Chloride (Sodium Chloride 0.9%) 1,000 mls @ 75 mls/hr IV .[id number] BURT Last Admin: 02/23/24 10:04 Dose: 75 mls/hr Ondansetron HCl (Ondansetron 2 Mg/Ml Sdv 2 Ml) 4 mg IVP Q8H PRN PRN Reason: vomiting, or N/V if npo Vitals/I&O/Wt Last Vital Signs Temp 97.8 F 02/23/24 07:44 Pulse 94 02/23/24 07:44 Resp 16 02/23/24 07:44 BP 150/82 02/23/24 07:44 Pulse Ox 94 02/23/24 07:44 O2 Del Method Room Air 02/23/24 07:44 02/22/24 02/23/24 02/23/24 22:59 06:59 14:59 Intake Total 1999 / 0 1570 / 4340 120 / 120 Output Total 2200 / 2200 400 / 2600 Balance -200 / 570 1170 / 1740 120 / 120 Weight last 48 hrs Weight 86.455 kg Weight 86.455 kg Weight 84.187 kg Weight 84.187 kg Physical Exam Narrative: comfortable in bed, awakens, alert. No apparent distress. vs noted hent- nc/at, eomi , anicteric neck supple lungs - clear b/l heart reg, positive S1-S2 abdomen soft, +BS ext- lower extremity edema 1+ b/l neuro- a,a, o x 3, improved strength skin- no rash noted telehealth visit- examined by RN Urinary Catheter Management: Walton: Cath Placed During This Visit: yes Reason for Continuing Indwelling Catheter: Chronic Indwelling Urinary Catheter on Admission Urinary Catheter Date of Insertion: 02/18/24 Urinary Catheter Time of Insertion: 21:00 Data 02/22/24 06:21 02/23/24 04:32 Micro: Microbiology 02/18/24 00:00 Blood Culture - Preliminary Blood 02/23/24 08:02 Blood Culture - Preliminary Blood SPECIMEN COLLECTED 02/23/24 08:00 Blood Culture - Preliminary Blood SPECIMEN COLLECTED 02/18/24 00:00 Blood Culture - Final Blood NO GROWTH AFTER 5 DAYS A&P Assessment and plan (1) NOLA (acute kidney injury): 63 yr old man 1. NOLA- no hydronephrosis on renal ct scan -not post renal azotemia -Urinalysis reviewed, He is 3+ blood 5-10 RBCs however has aMorphous sediment, and 5-10 5 granular casts. Urinalysis also has urine sodium 96. I am concerned that most likely the patient has ATN. Renal function reviewed and creatinine is starting to improve serologies and hepatitis panel negative normal free light chains await SIFE Negative HIV test For now hold on renal biopsy -monitor renal function 2. Patient has an increase Anion gap metabolic acidosis. is improving . Most likely from acute kidney injury. is improving -give sodium bicarbonate pills 3. Hyponatremia- from nola and LR. improved. d/c fluid restriction 4. ferritin, lft's, and lymphadenopathy are slowly improving 5. diarrhea per medicine 6. plts are improving 7. Replace vitamin D discussed w/ pt, RN, and Dr Medications reviewed -Informed consent for telehealth obtained from pt Plan see above Attestations Medical Necessity Statement*: nola, infection, met acidosis Time Spent in Patient Care: 16 - 35 minutes (>than 50% of time spent in counselling and/or direct pt care on unit). Coding Level of Care Code Acute Code for [facility] Fwd Diagnoses NOLA (acute kidney injury) N17.9
--- NOTE | 2024-02-23 11:35 | PM.PN ---
Subjective Subjective: No acute overnight events noted Medications: Reviewed: Yes Vitals/I&O/Wt Last Vital Signs Temp 97.8 F 02/23/24 07:44 Pulse 91 02/23/24 11:33 Resp 17 02/23/24 11:33 BP 142/74 02/23/24 11:33 Pulse Ox 95 02/23/24 11:33 O2 Del Method Room Air 02/23/24 11:33 02/22/24 02/23/24 02/23/24 22:59 06:59 14:59 Intake Total 2000 / 2770 1570 / 4340 120 / 120 Output Total 2200 / 2200 400 / 2600 850 / 850 Balance -200 / 570 1170 / 1740 -730 / -730 Weight last 48 hrs Weight 86.455 kg Weight 86.455 kg Weight 84.187 kg Weight 84.187 kg Physical Exam Narrative: He is alert awake oriented x 2 Chest clear to auscultation bilaterally Cardiovascular normal heart sounds Abdomen NAD Extremities bilateral trace lower extremity edema noted Urinary Catheter Management: Walton: Cath Placed During This Visit: yes Reason for Continuing Indwelling Catheter: Chronic Indwelling Urinary Catheter on Admission Urinary Catheter Date of Insertion: 02/18/24 Urinary Catheter Time of Insertion: 21:00 Data 02/22/24 06:21 02/23/24 04:32 Micro: Microbiology 02/18/24 00:00 Blood Culture - Preliminary Blood 02/23/24 08:02 Blood Culture - Preliminary Blood SPECIMEN COLLECTED 02/23/24 08:00 Blood Culture - Preliminary Blood SPECIMEN COLLECTED 02/18/24 00:00 Blood Culture - Final Blood NO GROWTH AFTER 5 DAYS A&P Assessment and plan (1) NOLA (acute kidney injury): (2) Acute encephalopathy: (3) Sepsis: (4) Liver dysfunction: (5) Lymphadenopathy: (6) Elevated lipase: Plan Acute encephalopathy likely secondary to combination of sepsis acute kidney injury liver dysfunction and dehydration resolved. Currently being treated for UTI and right lower lobe pneumonia visible on chest x-ray 2 out of 4 blood culture bottles showing gram-positive rods, will follow-up final culture and sensitivity and adjust antibiotics accordingly. Follow-up nephrology for further plan, no need for hemodialysis or kidney biopsy at this point Will follow-up serology and labs from nephrology point of view Continue antibiotics IV linezolid , doxycycline and Zosyn for now to cover bacterial and atypicals Leukocytosis resolved hemoglobin stable at 10.7.Hemoccult negative. Patient seems more alert now and has been improving since admission. Acute renal failure-creatinine trending down to 5.3-->4.8 Free kappa and lambda elevated, but not significant follow-up nephrology Continue normal saline for now. Surgery consult appreciated , as per surgery there was no palpable left groin lymphadenopathy accessible for possible excisional biopsy, hence lymphadenopathy could be likely infectious and resolving with current antibiotics. Plan to continue antibiotics for few weeks with repeat CT abdomen pelvis to assess for resolution of lymphadenopathy. If there is persistence, would need further workup for malignancy versus lymphoma Family, son counseled and educated about the plan of care. Renal nondialysis diet DVT prophylaxis with Lovenox He is full code for now Anticipatory discharge planning for tomorrow morning Attestations Medical Necessity Statement*: He needs continued hospitalization for management of acute renal failure, and UTI/Pneumonia Time Spent in Patient Care: 15minutes Coding Level of Care Code Acute Code for [facility] Diagnoses NOLA (acute kidney injury) N17.9 Acute encephalopathy G93.40 Sepsis A41.9 Liver dysfunction K76.89 Lymphadenopathy R59.1 Elevated lipase R74.8 Time Spent (min) 15
--- NOTE | 2024-02-23 14:47 | PC.PT ---
Pt refused PT today saying he was too exhausted and did not want to get up. Pt complained that people keep coming in and out and he cannot get rest or sleep. Will attempt again tomorrow.
[2024-02-23] MEDS: sodium bicarbonate 650 mg Tablet PO ×2 (15:04→21:16)
[2024-02-23 16:10] LABS: RMSF IGG NOT DETECTED; RMSF IGM NOT DETECTED
[2024-02-23 21:34] LABS: Immunofixation Serum Normal pattern.
[2024-02-24] VITALS (9 sets, daily range): BP systolic 137–170; BP diastolic 69–80; PULSE 75–91; RESP 15–18; TEMP 36.4–36.9; O2SAT 94–97
[2024-02-24] MEDS: doxycycline 100 MG in sodium chloride 0.9% (plus) 100 ML IV ×2 (02:46→14:56)
[2024-02-24] MEDS: enoxaparin 30 mg/0.3 mL Syringe SUBCUT (02:48)
[2024-02-24 03:34] LABS: Basophils % 0.2 %; Eosinophils # 0.1 10^3/uL (0.0-0.8); Eosinophils % 1.3 %; Hematocrit 27.8 % (37-53); Lymphocytes # 2.1 10^3/uL (0.8-4.8); Lymphocytes % 20.9 %; Mean Corpuscular HGB Conc 33.8 g/dL (30-55); Mean Corpuscular Hemoglobin 30.8 pg (27-33); Mean Corpuscular Volume 91.1 fl (82-101); Mean Platelet Volume 11.4 fL (7.4-10.4); Monocytes # 0.5 10^3/uL (0.2-0.9); Monocytes % 5.3 %; Neutrophils # 7.21 10^3/uL (1.8-7.7); Neutrophils % 71.4 %; Nucleated Red Blood Cells % 0 %; Platelet Count 135 10^3/cmm (157-399); Red Blood Count 3.05 10^6/uL (3.85-5.65); Red Cell Distribution Width 13.1 % (12.1-15.1)
[2024-02-24 03:50] LABS: Alanine Aminotransferase 110 U/L (0-41); Albumin Level 2.2 g/dL (3.5-5.2); Alkaline Phosphatase 112 U/L (40-130); Aspartate Amino Transferase 123 U/L (0-40); Blood Urea Nitrogen 75 mg/dL (8-23); Calcium 7.5 mg/dL (8.5-10.5); Carbon Dioxide 18 mmol/L (22-29); Chloride 109 mmol/L (98-107); Creatinine Clr Calc Pharmacy 21.1381; Glomerular Filtration Rate 14.1 mL/min (90-130); Glucose 113 mg/dL (65-115); Magnesium 2.5 mg/dL (1.7-2.3); Osmolality Calculated 317 mOsm/kg (285-295); Phosphorus 4.4 mg/dL (2.5-4.5); Sodium 142 mmol/L (136-145); Total Bilirubin 0.3 mg/dL (0.15-1.2); Total Protein 5.2 g/dL (6.6-8.7)
[2024-02-24 03:51] LABS: Anion Gap 18.5 (5-19); Potassium 3.5 mmol/L (3.5-5.1)
[2024-02-24 04:26] LABS: Ferritin 3286 ng/mL (30-400)
[2024-02-24] MEDS: linezolid premix 600 MG/300 ML PREMIX 300 MG IV ×2 (05:36→16:02)
[2024-02-24 07:00] LABS: Leptospira DNA QL NOT DETECTED; Leptospira Source URINE
--- NOTE | 2024-02-24 08:03 | PM.PN ---
Subjective Subjective: feels better. no n/v/f/c/victoria/leg apians. still has diarrhea and abd pain that he attributes to the abx. Medications: Reviewed: Yes Medication Review Details: Current Medications Acetaminophen (Acetaminophen 325 Mg Tablet) 650 mg PO Q6H PRN PRN Reason: Mild/Mod Pain Or Temp >/= 101 Acetaminophen (Acetaminophen 650 Mg Supp) 650 mg MN Q4H PRN PRN Reason: MILD PAIN OR INCREASE TEMP Last Admin: 02/18/24 03:33 Dose: 650 mg Enoxaparin Sodium (Enoxaparin 30 Mg/0.3 Ml Syringe) 30 mg SUBCUT Q24H BURT Last Admin: 02/24/24 02:48 Dose: 30 mg Ergocalciferol (Ergocalciferol (Vitamin D2) 50,000 Unit Capsule) 50,000 unit PO Q7D BURT Last Admin: 02/19/24 16:53 Dose: 50,000 unit Doxycycline Hyclate 100 mg/ (Sodium Chloride) 100 mls @ 100 mls/hr IV Q12H BURT; Protocol Last Infusion: 02/24/24 04:12 Dose: Infused Linezolid (Zyvox Premix) 600 mg in 300 mls @ 300 mls/hr IV Q12H BURT; Protocol Last Infusion: 02/24/24 06:48 Dose: Infused Piperacillin Sod/Tazobactam (Sod 3.375 gm/ Sodium Chloride) 50 mls @ 12.5 mls/hr IV Q12H BURT; Protocol Last Infusion: 02/24/24 01:35 Dose: Infused Sodium Chloride (Sodium Chloride 0.9%) 1,000 mls @ 75 mls/hr IV .[id number] [facility] Last Admin: 02/23/24 21:16 Dose: 75 mls/hr Ondansetron HCl (Ondansetron 2 Mg/Ml Sdv 2 Ml) 4 mg IVP Q8H PRN PRN Reason: vomiting, or N/V if npo Sodium Bicarbonate (Sodium Bicarbonate 650 Mg Tablet) 650 mg PO TID [facility] Last Admin: 02/23/24 21:16 Dose: 650 mg Vitals/I&O/Wt Last Vital Signs Temp 97.8 F 02/24/24 07:25 Pulse 85 02/24/24 07:25 Resp 16 06/09/24 07:25 BP 143/69 02/24/24 07:25 Pulse Ox 95 02/24/24 07:25 O2 Del Method Room Air 02/24/24 07:25 02/23/24 02/24/24 02/24/24 22:59 06:59 14:59 Intake Total 1290 / 1410 450 / 1860 Output Total 650 / 1500 1000 / 2500 Balance 640 / -90 -550 / -640 Weight last 48 hrs Weight 88.768 kg Weight 86.455 kg Weight 86.455 kg Physical Exam Narrative: comfortable in bed, awakens, alert. No apparent distress. vs noted hent- nc/at, eomi , anicteric neck supple lungs - clear b/l heart reg, positive S1-S2 abdomen soft, +BS ext- lower extremity edema 1+ b/l neuro- a,a, o x 3, improving strength skin- no rash noted telehealth visit- examined by RN Urinary Catheter Management: Walton: Cath Placed During This Visit: yes Reason for Continuing Indwelling Catheter: Assist Healing of Perineal & Sacral Wounds- Incontinent Patients Urinary Catheter Date of Insertion: 02/18/24 Urinary Catheter Time of Insertion: 21:00 Data 02/24/24 02:28 02/24/24 02:28 Micro: Microbiology 02/18/24 00:00 Blood Culture - Preliminary Blood 02/23/24 08:02 Blood Culture - Preliminary Blood SPECIMEN COLLECTED 02/23/24 08:00 Blood Culture - Preliminary Blood SPECIMEN COLLECTED A&P Assessment and plan (1) NOLA (acute kidney injury): 63 yr old man 1. NOLA- no hydronephrosis on renal ct scan -not post renal azotemia -Urinalysis reviewed, He is 3+ blood 5-10 RBCs however has aMorphous sediment, and 5-10 5 granular casts. Urinalysis also has urine sodium 96. I am concerned that most likely the patient has ATN. Renal function reviewed and creatinine is starting to improve serologies and hepatitis panel negative normal free light chains normal SIFE Negative HIV test For now hold on renal biopsy -monitor renal function 2. Patient has an increase Anion gap metabolic acidosis. is improving . Most likely from acute kidney injury. is improving -improving with sodium bicarbonate pills 2b. gram + rods bacteremia per medicine 3. ferritin, lft's, and lymphadenopathy are slowly improving 4. diarrhea per medicine 5. plts are improving 6. Replace vitamin D discussed w/ pt, RN Medications reviewed -Informed consent for telehealth obtained from pt Plan see above Attestations Medical Necessity Statement*: abx for bacteremia renal fxn improving Time Spent in Patient Care: 16 - 35 minutes (>than 50% of time spent in counselling and/or direct pt care on unit). Coding Level of Care Code Acute Code for Chg Fwd Diagnoses NOLA (acute kidney injury) N17.9
[2024-02-24] MEDS: sodium bicarbonate 650 mg Tablet PO ×3 (09:42→21:00)
[2024-02-24] MEDS: potassium chloride ER 20 mEq Tablet PO (09:44)
[2024-02-24] MEDS: piperacillin-tazobactam 3.375 GM in sodium chloride 0.9% (plus) 50 ML IV ×2 (09:47→22:22)
--- NOTE | 2024-02-24 14:15 | PM.DCS ---
Discharge Providers Date of Admission: 02/18/24 00:09 Date of Discharge: February 24, 2024 Attending Provider at Admission: Dre Fink Attending Provider at Discharge: Nighat Rob MD Diagnoses at Discharge Discharge Diagnosis (1) NOLA (acute kidney injury): Status: Acute Reason for Visit Reason for Visit: Vomiting\Diah\Fever\ Brief History: 63 year old male without known medical history but does not have a primary physician, not on any medications, has not been feeling for close to a week, has been laid out as per his family. He has had nausea and vomiting as well as diarrhea. He has been getting weaker, having difficulties with his balance. In ER found to have a fever 100.9, leukocytosis 20.78. NOLA versus NOLA on CKD creatinine 4.5, BUN 71, lactic acid 2.9, transaminitis, AST 262, ALT 97, lipase 26. CRP 245. UA with 15-25 RBC, 0-4 WBC. 3+ bacteria. Chest x-ray with increased interstitial markings with peribronchial cuffing in the lung bases nonspecific but could be secondary to bronchitis, pulmonary vascular congestion, viral infection and small vessel airway disease. CT abdomen pelvis with multiple retroperitoneal enlarged lymph nodes measuring up to 11 mm in short axis and left periaortic station. Enlarged lymph nodes in the left groin, left inguinal lymph node, nonspecific, but could be seen in the setting of infection, neoplasm such as lymphoma. Additional finding of left femoral vein asymmetrically larger than the right with adjacent fat stranding which is nonspecific can be seen feeling of thrombophlebitis. Left lower extremity Doppler ultrasound may be obtained to exclude thrombus. Hospital Course Hospital Course Patient was suspected to have sepsis with fever, leukocytosis, tachycardia likely combination of acute viral illness with systemic symptoms, secondary infection, severe dehydration, rhabdomyolysis, NOLA, acute liver injury, lactic acidosis, thrombocytopenia, anemia and acute encephalopathy. He was started on IV antibiotics Zosyn IV linezolid hide and IV doxycycline. He had a CT abdomen/pelvis done which showed multiple para-aortic lymph nodes and 1.8 mm lymph node in left groin. There was a thought process that he might be having a lymphoma versus malignancy. Acute and cephalopathy likely secondary to metabolic derangements. He also had acute renal failure with creatinine maximum of 6, liver dysfunction, elevated lipase and ferritin levels. Serologies sent for tularemia, Rickettsia, Leptospira. Nephrology consulted and he had extensive workup done for acute renal failure for multiple myeloma, hepatitis, HIV which was negative. During his stay he also had pneumonia and was treated appropriately. He also had a surgery consult done for lymphadenopathy and possible excisional biopsy of left groin lymph node. As per surgery the left groin lymph node was not palpable anymore and there were no other accessible nodes for biopsy. Thought process was that lymphadenopathy is regressing, we can continue antibiotics for 10 days on discharge and follow-up CT abdomen pelvis in 2-4 weeks. Acute renal failure resolving with creatinine of 4.3 on discharge, ferritin of 3200 trending down, LFTs improving, and normal WBC count . blood cultures are negative so far, he is clinically improving, hemodynamically stable and afebrile will discharge him home with follow-up with PCP in 1 week and nephrology clinic in 2 weeks. He does not have insurance and needs to set up a physical therapy once approved by insurance. He will be discharged on p.o. doxycycline 100 mg twice a day and p.o. linezolid 600 mg twice a day for 10 days. Physical Exam Narrative: He is alert awake oriented x 2 Chest clear to auscultation bilaterally Cardiovascular normal heart sounds Abdomen NAD Extremities bilateral trace lower extremity edema noted Urinary Catheter Management: Walton: Cath Placed During This Visit: yes Reason for Continuing Indwelling Catheter: Assist Healing of Perineal & Sacral Wounds- Incontinent Patients Urinary Catheter Date of Insertion: 02/18/24 Urinary Catheter Time of Insertion: 21:00 Discharge Data Studies Completed and Pending Completed Studies During Hospitalization Category Date Time Status CT abdomen pelvis wo con [id number] Stat Cat Scan 02/17/24 20:[address] lumbar spine wo con* [id number] Routine Cat Scan 02/18/24 01:[address] thoracic spin wo con* [id number] Routine Cat Scan 02/18/24 01:39 Completed CXRP [XR chest 1V portable [id number]] Routine Exams 02/20/24 07:48 Completed XR chest 1V portable [id number] Stat Exams 02/17/24 20:56 [place] [id number] Stat Ultrasound 02/18/24 06:00 Completed US renal BI* [id number] Urgent Ultrasound 02/19/24 07:36 Completed Pending at discharge Category Date Time Status Blood Culture Stat Lab 02/18/24 00:00 Results Blood Culture Stat Lab 02/23/24 08:02 Results CSF Analysis + Cell Count Routine Lab 02/18/24 02:21 Uncollected CSF Culture & Gram Stain Routine Lab 02/18/24 02:21 Uncollected Complete Blood Count w/Auto AM LABS Lab 02/25/24 04:00 Ordered Complete Blood Count w/Auto AM LABS Lab 02/26/24 04:00 Ordered Comprehensive Metabolic Panel AM LABS Lab 02/25/24 04:00 Ordered Comprehensive Metabolic Panel AM LABS Lab 02/26/24 04:00 Ordered Comprehensive Metabolic Panel AM LABS Lab 02/27/24 04:00 Ordered Cyto Order Verification Routine Lab 02/18/24 02:21 Ordered Francisella tularensis IgM/IgG Routine Lab 02/18/24 03:08 Results Glucose CSF Routine Lab 02/18/24 02:21 Uncollected Leptospira DNA,Qualitative PCR Routine Lab 02/18/24 03:08 Results Magnesium AM LABS Lab 02/25/24 04:00 Ordered Magnesium AM LABS Lab 02/26/24 04:00 Ordered Magnesium AM LABS Lab 02/27/24 04:00 Ordered Miscellaneous Test Routine Lab 02/18/24 11:34 Ordered Miscellaneous Test Routine Lab 02/18/24 11:34 Received Miscellaneous Test Routine Lab 02/18/24 14:25 Received Phosphorus AM LABS Lab 02/25/24 04:00 Ordered Phosphorus AM LABS Lab 02/26/24 04:00 Ordered Phosphorus AM LABS Lab 02/27/24 04:00 Ordered Tick Panel Routine Lab 02/18/24 14:30 Results Total Protein CSF Routine Lab 02/18/24 02:21 Uncollected Radiology Impressions Abdomen/Pelvis CT 02/17/24 20:56 IMPRESSION: 1. Multiple retroperitoneal enlarged lymph nodes measuring up to 11 mm in short axis in the left periaortic station. Multiple enlarged lymph nodes in the left groin measuring up to 24 mm in short axis and a left inguinal lymph node measuring up to 13 mm in short axis. Findings are nonspecific but can be seen the setting infection or neoplasm such as lymphoma. 2. The left femoral vein is asymmetrically larger than the right with adjacent fat stranding which is nonspecific but can be seen the setting of thrombophlebitis. A left lower extremity Doppler ultrasound may be obtained to exclude thrombus. 3. No bowel obstruction or inflammatory process associated with the bowel. 4. No free air or significant free fluid in the abdomen or pelvis. 5. No evidence of appendicitis. Lumbar Spine CT 02/18/24 01:39 IMPRESSION: 1. No acute findings in the lumbar spine. 2. Retroperitoneal and bilateral iliac chain lymphadenopathy. Clinical correlation recommended. Thoracic Spine CT 02/18/24 01:39 IMPRESSION: 1. No acute findings in the thoracic spine. 2. Imaging findings concerning for pneumonia. Septic pulmonary emboli should be considered. Venous Duplex 02/18/24 06:00 IMPRESSION: 1. No evidence of deep vein thrombosis in the left lower extremity. 2. Enlarged left groin lymph node measuring up to 16 mm in short axis. Renal Ultrasound 02/19/24 07:36 IMPRESSION: Normal renal ultrasound. Chest X-Ray 02/20/24 07:48 IMPRESSION: Progression of abnormality in the right lower lung, most likely pneumonitis. Laboratory Results WBC 10.10 10^3/uL (3.29-11.43) 02/24/24 02:28 RBC 3.05 10^6/uL (3.85-5.65) L 02/24/24 02:28 Hgb 9.40 g/dL (11.27-16.99) L 02/24/24 02:28 Hct 27.8 % (37-53) L 02/24/24 02:28 MCV 91.1 fl (82-101) 02/24/24 02:28 MCH 30.8 pg (27-33) 02/24/24 02:28 MCHC 33.8 g/dL (30-55) 02/24/24 02:28 RDW 13.1 % (12.1-15.1) 02/24/24 02:28 Plt Count 135 10^3/cmm (157-399) L 02/24/24 02:28 MPV 11.4 fL (7.4-10.4) H 02/24/24 02:28 Neut % (Auto) 71.4 % 02/24/24 02:28 Lymph % (Auto) 20.9 % 02/24/24 02:28 [place] % (Auto) 5.3 % 02/24/24 02:28 Eos % (Auto) 1.3 % 02/24/24 02:28 Baso % (Auto) 0.2 % 02/24/24 02:28 Reticulocyte % (Auto) 0.7 % (0.5-2.0) 02/20/24 05:23 Neut # (Auto) 7.21 10^3/uL (1.8-7.7) 02/24/24 02:28 Lymph # (Auto) 2.1 10^3/uL (0.8-4.8) 02/24/24 02:28 [place] # (Auto) 0.5 10^3/uL (0.2-0.9) 02/24/24 02:28 Eos # (Auto) 0.1 10^3/uL (0.0-0.8) 02/24/24 02:28 Baso # (Auto) 0.0 10^3/uL (0.0-0.1) 02/24/24 02:28 Nucleated RBC % (auto) 0 % 02/24/24 02:28 Nucleated RBCs # 0.0 /100WBC 02/24/24 02:28 Peripher Smr Path Cons Sent for review 02/19/24 06:01 Haptoglobin 273.0 mg/L (30-200) H 02/18/24 11:34 PT 14.60 SECONDS (12.1-14.9) 02/17/24 20:52 INR 1.10 (0.8-1.2) 02/17/24 20:52 Sodium 142 mmol/L (136-145) 02/24/24 02:28 Potassium 3.5 mmol/L (3.5-5.1) 02/24/24 02:28 Chloride 109 mmol/L (98-107) H 02/24/24 02:28 Carbon Dioxide 18 mmol/L (22-29) L 02/24/24 02:28 Anion Gap 18.5 (5-19) 02/24/24 02:28 BUN 75 mg/dL (8-23) H 02/24/24 02:28 Creatinine 4.3 mg/dL (0.7-1.2) H 02/24/24 02:28 GFR Calculation 14.1 mL/min (90-130) L 02/24/24 02:28 Glucose 113 mg/dL (65-115) 02/24/24 02:28 Estimat Average Glucose 123 02/18/24 11:34 Hemoglobin A1c 5.9 % (4.0-6.0) 02/18/24 11:34 Calculated Osmolality 317 mOsm/kg (285-295) H 02/24/24 02:28 Lactic Acid 2.9 mmol/L (0.5-2.2) H 02/17/24 20:52 Lactic Acid (Sepsis) 2.0 mmol/L (0.5-2.2) 02/18/24 00:08 Lactate 1.5 mmol/L (0.5-2.2) 02/18/24 19:49 Uric Acid 8.4 mg/dL (3.4-7.0) H 02/18/24 11:34 Calcium 7.5 mg/dL (8.5-10.5) L 02/24/24 02:28 Phosphorus 4.4 mg/dL (2.5-4.5) 02/24/24 02:28 Magnesium 2.5 mg/dL (1.7-2.3) H 02/24/24 02:28 Iron 73 ug/dL (59-158) 02/19/24 06:01 TIBC 104 mcg/dl 02/19/24 06:01 % Saturation 70.1 % (20-50) H 02/19/24 06:01 Unsat Iron Binding 31 ug/dL (112-347) L 02/19/24 06:01 Ferritin 3286 ng/mL (30-400) H 02/24/24 02:28 Total Bilirubin 0.3 mg/dL (0.15-1.2) 02/24/24 02:28 AST 123 U/L (0-40) H 02/24/24 02:28 ALT 110 U/L (0-41) H 02/24/24 02:28 Alkaline Phosphatase 112 U/L (40-130) 02/24/24 02:28 Lactate Dehydrogenase 1216 U/L (135-225) H 02/19/24 06:01 Creatine Kinase 72 U/L (39-308) 02/21/24 06:07 C-Reactive Protein 245.5 mg/L (0.0-4.9) H 02/17/24 20:52 NT-Pro-B Natriuret Pep 96 pg/mL (0-125) 02/17/24 20:52 Total Protein 5.2 g/dL (6.6-8.7) L 02/24/24 02:28 Albumin 2.2 g/dL (3.5-5.2) L 02/24/24 02:28 Globulin 3.0 g/dL (1.3-4.6) 02/24/24 02:28 Qthuk-4-Mngswhxtt 0.6 g/dL (0.2-0.3) H 02/18/24 19:49 Hziwm-3-Avbfkdjzq 0.8 g/dL (0.5-0.9) 02/18/24 19:49 Deso-3-Agsrtgzd 0.3 g/dL (0.4-0.6) L 02/18/24 19:49 Bpcn-9-Mihjwtrw 0.4 g/dL (0.2-0.5) 02/18/24 19:49 Gamma Globulins 0.7 g/dL (0.8-1.7) L 02/18/24 19:49 Abnorm Protein Band 1 Not Reportable 02/18/24 19:49 Lipase 826 U/L (13-60) H 02/21/24 06:07 25-OH Vitamin D Total 6 ng/mL (30-100) L 02/19/24 06:01 1,25 Dihydroxy Vit D2 <8 pg/mL 02/18/24 19:49 1,25 Dihydroxy Vit D3 65 pg/mL 02/18/24 19:49 TSH 1.50 uIU/mL (0.27-4.20) 02/20/24 05:23 PTH Intact 219.7 pg/mL (15-65) H 02/19/24 06:01 Calcium (PTH Intact) 6.2 mg/dL (8.5-10.5) L 02/19/24 06:01 Urine Color Yellow (Yellow) 02/20/24 13:21 Urine Appearance Cloudy (CLEAR) A 02/20/24 13:21 Urine pH 5 (5-7) 02/20/24 13:21 Ur Specific [place] 1.010 (1.005-1.030) 02/20/24 13:21 Urine Protein 1+ (Negative) H 02/20/24 13:21 Urine Glucose (UA) Norm (Normal) 02/20/24 13:21 Urine Ketones 1+ (Negative) H 02/20/24 13:21 Urine Blood 3+ (Negative) H 02/20/24 13:21 Urine Nitrate Negative (Negative) 02/20/24 13:21 Urine Bilirubin Neg (Negative) 02/20/24 13:21 Urine Urobilinogen Norm mg/dL (Negative) 02/20/24 13:21 Ur Leukocyte Esterase 2+ (Negative) H 02/20/24 13:21 Urine RBC 0-4 /hpf (0-2) H 02/20/24 13:21 Urine WBC 0-4 /hpf (0-5) H 02/20/24 13:21 Ur Squamous Epith Cells 0-4 /hpf (0-5) H 02/20/24 13:21 Amorphous Sediment 1+ /hpf 02/20/24 13:21 Urine Bacteria 1+ /hpf (NONE) H 02/20/24 13:21 Hyaline Casts Rare /lpf 02/20/24 13:21 Fine Granular Casts 0-4 /lpf H 02/20/24 13:21 Coarse Granular Casts 0-4 /lpf H 02/17/24 22:45 Urine Mucus 1+ /hpf 02/20/24 13:21 Urine Osmolality 302 mOsm/kg (50-1200) 02/20/24 13:21 Ur Random Sodium 33 mmol/L 02/20/24 13:21 Ur Random Potassium 13 mmol/L 02/20/24 13:21 Ur Random Chloride 26 mmol/L 02/20/24 13:21 Urine Creatinine 51 mg/dL (39-259) 02/20/24 13:21 U Abnormal Prot Band 2 Not Reportable 02/18/24 19:49 U Abnormal Prot Band 3 Not Reportable 02/18/24 19:49 Urine Opiates Screen Negative ng/mL (Negative) 02/17/24 22:45 Ur Barbiturates Screen Negative ng/mL (Negative) 02/17/24 22:45 Ur Phencyclidine Scrn Negative ng/mL (Negative) 02/17/24 22:45 Ur Amphetamines Screen Negative ng/mL (Negative) 02/17/24 22:45 U Benzodiazepines Scrn Negative ng/mL (Negative) 02/17/24 22:45 Urine Cocaine Screen Negative ng/mL (Negative) 02/17/24 22:45 U Marijuana (THC) Screen Negative ng/mL (Negative) 02/17/24 22:45 Ethyl Alcohol < 10 mg/dL (0-10) 02/17/24 20:52 Pro Electrophoresis Int See note 02/18/24 19:49 Serum Immunofixation Normal pattern. 02/18/24 19:49 TC Screen Negative (NEGATIVE) 02/18/24 19:49 ANCA Screen Negative (NEGATIVE) 02/18/24 19:49 ANCA Titer Not Reportable 02/18/24 19:49 Anti-ds DNA IgG Ab <1 IU/mL 02/18/24 19:49 Glomerular Base Mem IgG <1.0 AI 02/18/24 19:49 Free [place] Light Chains 95.1 mg/L (3.3-19.4) H 02/18/24 19:49 Free [place] Light Chain 78.9 mg/L (5.7-26.3) H 02/18/24 19:49 Free [place]/Lambda Ratio 1.21 (0.26-1.65) 02/18/24 19:49 Adenovirus (PCR) Not detected (NOT DETECT) 02/17/24 22:05 Lyme Ab (Western Blot) <0.90 index 02/18/24 14:30 C. pneumoniae DNA (PCR) Not detected (NOT DETECT) 02/17/24 22:05 Coronavirus 229E (PCR) Not detected (NOT DETECT) 02/17/24 22:05 Hepatitis A IgM Ab Non-reactive (Nonreactive) 02/17/24 20:52 Hep Bs Antigen Non-reactive (Nonreactive) 02/20/24 05:23 Hep Bs Antibody < 3.5 (11.5-1000) L 02/20/24 05:23 Hep B Core Total Ab Non-reactive (Nonreactive) 02/20/24 05:23 Hep B Core IgM Ab Non-reactive (Nonreactive) 02/17/24 20:52 Hepatitis C Antibody Non-reactive (Nonreactive) 02/20/24 05:23 HIV 1&2 Ab & HIV 1 Ag Non-reactive (Non-Reactiv) 02/18/24 19:49 HIV 1&2 Antibody Non-reactive (Non-Reactiv) 02/18/24 19:49 Human Metapneumovir PCR Not detected (NOT DETECT) 02/17/24 22:05 Influenza A (H1) PCR Not detected (NOT DETECT) 02/17/24 22:05 Influ A (H1/09) PCR Not detected (NOT DETECT) 02/17/24 22:05 Influenza A (H3) PCR Not detected (NOT DETECT) 02/17/24 22:05 Influenza Type A (PCR) Not detected (NOT DETECT) 02/17/24 22:05 Influenza Type B (PCR) Not detected (NOT DETECT) 02/17/24 22:05 Leptospira Source Urine 02/18/24 03:08 Leptospira DNA (PCR) Not detected 02/18/24 03:08 M. pneumoniae (PCR) Not detected (NOT DETECT) 02/17/24 22:05 Parainfluenza 1 (PCR) Not detected (NOT DETECT) 02/17/24 22:05 Parainfluenza 2 (PCR) Not detected (NOT DETECT) 02/17/24 22:05 Parainfluenza 3 (PCR) Not detected (NOT DETECT) 02/17/24 22:05 Parainfluenza 4 (PCR) Not detected (NOT DETECT) 02/17/24 22:05 RSV Type A (PCR) Not detected (NOT DETECT) 02/17/24 22:05 RSV Type B (PCR) Not detected (NOT DETECT) 02/17/24 22:05 Entero/Rhino (PCR) Not detected (NOT DETECT) 02/17/24 22:05 Rickettsia IgG Ab Not detected 02/18/24 14:30 Rickettsia IgM Ab Not detected 02/18/24 14:30 SARS-CoV-2 (PCR) Not detected (NOT DETECT) 02/17/24 22:05 Anti-Streptolysin O Ab 125 IU/mL (<200) 02/18/24 19:49 Vitals Last Vital Signs Temp 97.6 F 02/24/24 12:00 Pulse 88 02/24/24 12:00 Resp 17 02/24/24 12:00 BP 153/75 02/24/24 12:00 Pulse Ox 94 02/24/24 12:00 O2 Del Method Room Air 02/24/24 12:00 Discharge Plan Discharge Patient Disposition: Home Condition: Stable Prescriptions: New sodium bicarbonate 650 mg Tablet 650 mg PO TID 7 Days Qty: 21 0RF doxycycline monohydrate 100 mg capsule 100 mg PO BID 10 Days Qty: 20 0RF linezolid 600 mg tablet 600 mg PO BID 10 Days Qty: 20 0RF Protonix 40 mg tablet,delayed release (DR/EC) 40 mg PO DAILY 10 Days Qty: 10 0RF ondansetron 4 mg tablet,disintegrating 4 mg PO Q8H PRN (Reason: nausea and vomiting) 4 Days Qty: 20 0RF Referrals: Julio Moulton MD [Physician] - 03/10/24 10:00 am Gregorio Mckinnon DO [Physician] - 03/03/24 10:00 am (Family has spoken to Dr. Mckinnon and he is agreeable to accept @ [facility]. ) Discharge Diet: Regular Discharge Activity: Increase activity as tolerated Patient Instructions: Doxycycline (By mouth), Pantoprazole (By mouth), Linezolid (By mouth), Acute Kidney Injury (GEN), Opioid Safety Activity Restrictions/Additional Instructions: Once approved by insurance, patient needed to set up for physical therapy Follow-up with PCP in 1 week and nephrology clinic in 2 weeks. PCP to follow-up serologies for Leptospira, Rickettsia, tularemia as outpatient which are pending. Patient might need repeat CT abdomen pelvis in 4 weeks to evaluate for resolution of abdominal lymphadenopathy. Discharge Attestations Time Spent in Discharge Care*: less than 30 min Quality Metrics Clinical Quality Measures [ No reported AMI, CVA or VTE this stay] Coding Level of Care Code Acute Code for Chg Fwd Diagnoses NOLA (acute kidney injury) N17.9 Time Spent (min) 25
--- NOTE | 2024-02-24 18:15 | P.PN_ITS ---
Subjective 2 Subjective: No acute overnight events noted Medications: Reviewed: Yes Vitals/I&O/Wt Last Vital Signs Temp 97.5 F L 02/24/24 15:23 Pulse 79 02/24/24 15:23 Resp 17 02/24/24 15:23 BP 158/80 02/24/24 15:23 Pulse Ox 97 02/24/24 15:23 O2 Del Method Room Air 02/24/24 15:23 02/24/24 02/24/24 02/24/24 06:59 14:59 22:59 Intake Total 450 / 1860 1290 / 1290 580 / 1870 Output Total 1000 / 2500 800 / 800 Balance -550 / -640 490 / 490 580 / 1070 Weight last 48 hrs Weight 88.768 kg Weight 86.455 kg Weight 86.455 kg Physical Exam 2 Narrative: He is alert awake oriented x 2 Chest clear to auscultation bilaterally Cardiovascular normal heart sounds Abdomen NAD Extremities bilateral trace lower extremity edema noted Urinary Catheter Management: Walton: Cath Placed During This Visit: yes Reason for Continuing Indwelling Catheter: Assist Healing of Perineal & Sacral Wounds- Incontinent Patients Urinary Catheter Date of Insertion: 02/18/24 Urinary Catheter Time of Insertion: 21:00 Data 02/24/24 02:28 02/24/24 02:28 Micro: Microbiology 02/18/24 00:00 Blood Culture - Final Blood 02/23/24 08:02 Blood Culture - Preliminary Blood NEGATIVE TO DATE 02/23/24 08:00 Blood Culture - Preliminary Blood NEGATIVE TO DATE A&P Assessment and plan (1) NOLA (acute kidney injury): (2) Acute encephalopathy: (3) Sepsis: (4) Liver dysfunction: (5) Lymphadenopathy: (6) Elevated lipase: Plan Acute encephalopathy likely secondary to combination of sepsis acute kidney injury liver dysfunction and dehydration resolved. Currently being treated for UTI and right lower lobe pneumonia visible on chest x-ray 2 out of 4 blood culture bottles showing gram-positive rods, will follow-up final culture and sensitivity and adjust antibiotics accordingly. Follow-up nephrology for further plan, no need for hemodialysis or kidney biopsy at this point Will follow-up serology and labs from nephrology point of view Continue antibiotics IV linezolid , doxycycline and Zosyn for now to cover bacterial and atypicals Leukocytosis resolved hemoglobin stable at 9.4 .Hemoccult negative. Patient seems more alert now and has been improving since admission. Acute renal failure-creatinine trending down to 5.3-->4.8-->4.3 Free kappa and lambda elevated, but not significant follow-up nephrology Continue normal saline for now. Surgery consult appreciated , as per surgery there was no palpable left groin lymphadenopathy accessible for possible excisional biopsy, hence lymphadenopathy could be likely infectious and resolving with current antibiotics. Plan to continue antibiotics for few weeks with repeat CT abdomen pelvis to assess for resolution of lymphadenopathy. If there is persistence, would need further workup for malignancy versus lymphoma Family, son counseled and educated about the plan of care. Renal nondialysis diet DVT prophylaxis with Lovenox He is full code for now Discharge planning for tomorrow morning. Patient does not have a n insurance and need medstobeds, hence will discharge in am Attestations 2 Medical Necessity Statement*: Paln for discharge home in am Time Spent in Patient Care: 15 minutes Coding Level of Care Code Acute Code for g Fwd Diagnoses NOLA (acute kidney injury) N17.9 Acute encephalopathy G93.40 Sepsis A41.9 Liver dysfunction K76.89 Lymphadenopathy R59.1 Elevated lipase R74.8 Time Spent (min) 15
[2024-02-25] MEDS: doxycycline 100 MG in sodium chloride 0.9% (plus) 100 ML IV ×2 (02:09→13:51)
[2024-02-25] MEDS: enoxaparin 30 mg/0.3 mL Syringe SUBCUT (02:15)
[2024-02-25 04:00] VITALS: BP 162/71; PULSE 74; RESP 15; TEMP 36.6; O2SAT 96
[2024-02-25] MEDS: linezolid premix 600 MG/300 ML PREMIX 300 MG IV (04:24)
[2024-02-25 05:15] VITALS: PULSE 74
[2024-02-25 05:57] LABS: Basophils % 0.2 %; Eosinophils # 0.1 10^3/uL (0.0-0.8); Hematocrit 27.8 % (37-53); Lymphocytes # 2.4 10^3/uL (0.8-4.8); Mean Corpuscular HGB Conc 33.5 g/dL (30-55); Mean Corpuscular Hemoglobin 30.8 pg (27-33); Mean Corpuscular Volume 92.1 fl (82-101); Mean Platelet Volume 10.6 fL (7.4-10.4); Monocytes # 0.5 10^3/uL (0.2-0.9); Monocytes % 4.8 %; Neutrophils # 7.09 10^3/uL (1.8-7.7); Neutrophils % 69.7 %; Nucleated Red Blood Cells % 0 %; Platelet Count 143 10^3/cmm (157-399); Red Blood Count 3.02 10^6/uL (3.85-5.65); Red Cell Distribution Width 13.2 % (12.1-15.1); White Blood Count 10.17 10^3/uL (3.29-11.43)
[2024-02-25 06:19] LABS: Alanine Aminotransferase 88 U/L (0-41); Albumin Level 2.4 g/dL (3.5-5.2); Alkaline Phosphatase 90 U/L (40-130); Anion Gap 16.6 (5-19); Aspartate Amino Transferase 66 U/L (0-40); Blood Urea Nitrogen 65 mg/dL (8-23); Calcium 7.9 mg/dL (8.5-10.5); Carbon Dioxide 19 mmol/L (22-29); Chloride 108 mmol/L (98-107); Creatinine Clr Calc Pharmacy 25.7956; Globulin 2.9 g/dL (1.3-4.6); Glomerular Filtration Rate 17.8 mL/min (90-130); Glucose 149 mg/dL (65-115); Magnesium 2.1 mg/dL (1.7-2.3); Osmolality Calculated 311 mOsm/kg (285-295); Phosphorus 4.2 mg/dL (2.5-4.5); Potassium 3.6 mmol/L (3.5-5.1); Sodium 140 mmol/L (136-145); Total Bilirubin 0.3 mg/dL (0.15-1.2); Total Protein 5.3 g/dL (6.6-8.7)
[2024-02-25 07:42] VITALS: BP 152/81; PULSE 74; RESP 17; TEMP 36.7; O2SAT 96
--- NOTE | 2024-02-25 07:46 | P.PN_ITS ---
Subjective 2 Subjective: feels better. says he was able to shower. no n/v/f/c/victoria/d/leg pains. dec edema. no sob Medications: Reviewed: Yes Medication Review Details: Current Medications Acetaminophen (Acetaminophen 325 Mg Tablet) 650 mg PO Q6H PRN PRN Reason: Mild/Mod Pain Or Temp >/= 101 Acetaminophen (Acetaminophen 650 Mg Supp) 650 mg MA Q4H PRN PRN Reason: MILD PAIN OR INCREASE TEMP Last Admin: 02/18/24 03:33 Dose: 650 mg Enoxaparin Sodium (Enoxaparin 30 Mg/0.3 Ml Syringe) 30 mg SUBCUT Q24H BURT Last Admin: 02/25/24 02:15 Dose: 30 mg Ergocalciferol (Ergocalciferol (Vitamin D2) 50,000 Unit Capsule) 50,000 unit PO Q7D BURT Last Admin: 02/19/24 16:53 Dose: 50,000 unit Doxycycline Hyclate 100 mg/ (Sodium Chloride) 100 mls @ 100 mls/hr IV Q12H BURT; Protocol Last Infusion: 02/25/24 03:10 Dose: Infused Linezolid (Zyvox Premix) 600 mg in 300 mls @ 300 mls/hr IV Q12H BURT; Protocol Last Infusion: 02/25/24 05:24 Dose: Infused Piperacillin Sod/Tazobactam (Sod 3.375 gm/ Sodium Chloride) 50 mls @ 12.5 mls/hr IV Q12H BURT; Protocol Last Infusion: 02/25/24 02:09 Dose: Infused Ondansetron HCl (Ondansetron 2 Mg/Ml Sdv 2 Ml) 4 mg IVP Q8H PRN PRN Reason: vomiting, or N/V if npo Sodium Bicarbonate (Sodium Bicarbonate 650 Mg Tablet) 650 mg PO TID BURT Last Admin: 02/24/24 21:00 Dose: 650 mg Vitals/I&O/Wt Last Vital Signs Temp 98.0 F 02/25/24 07:42 Pulse 74 02/25/24 07:42 Resp 17 02/25/24 07:42 BP 152/81 02/25/24 07:42 Pulse Ox 96 02/25/24 07:42 O2 Del Method Room Air 02/25/24 04:00 02/24/24 02/25/2424 22:59 06:59 14:59 Intake Total 880 / 2170 930 / 3100 Output Total 850 / 1650 625 / 2275 Balance 30 305 / 825 Weight last 48 hrs Weight 85.049 kg Weight 88.768 kg Physical Exam 2 Narrative: comfortable in bed, awakens, alert. No apparent distress. vs noted hent- nc/at, eomi , anicteric neck supple lungs - clear b/l heart reg, positive S1-S2 abdomen soft, +BS ext- lower extremity trace edema b/l neuro- a,a, o x 3, improving strength skin- no rash noted telehealth visit- examined by RN Urinary Catheter Management: Walton: Cath Placed During This Visit: yes Reason for Continuing Indwelling Catheter: Other Urinary Catheter Date of Insertion: 02/18/24 Urinary Catheter Time of Insertion: 21:00 Data 02/25/24 05:30 02/25/24 05:30 Micro: Microbiology 02/24/24 21:48 Occult Blood (FIT) - Final Stool 02/18/24 00:00 Blood Culture - Final Blood 02/23/24 08:02 Blood Culture - Preliminary Blood NEGATIVE TO DATE 02/23/24 08:00 Blood Culture - Preliminary Blood NEGATIVE TO DATE A&P Assessment and plan (1) NOLA (acute kidney injury): 63 yr old man 1. NOLA- no hydronephrosis on renal ct scan -not post renal azotemia -Urinalysis reviewed, He is 3+ blood 5-10 RBCs however has aMorphous sediment, and 5-10 5 granular casts. Urinalysis also has urine sodium 96. I am concerned that most likely the patient has ATN. Renal function reviewed and creatinine continues to improve serologies and hepatitis panel negative normal free light chains normal SIFE Negative HIV test For now hold on renal biopsy -monitor renal function 2. Patient has an increase Anion gap metabolic acidosis. is improving . Most likely from acute kidney injury. is improving -improving with sodium bicarbonate pills -dec to bid 2b. gram + rods bacteremia per medicine 3. ferritin, lft's, and lymphadenopathy are slowly improving 4. diarrhea improving 5. plts are improving 6. Replace vitamin D seen and examined w/ RN, using A/V equipement- telehealth visit discussed w/ pt, RN Medications reviewed renal will sign off. he can follow up with renal clinic in the community. please do not hesitate to call with any questions -Informed consent for telehealth obtained from pt Plan see above Attestations 2 Medical Necessity Statement*: per hospitalist Time Spent in Patient Care: 16 - 35 minutes (>than 50% of time sp ent in counselling and/or direct pt care on unit) . Coding Level of Care Code Acute Code for Chg Fwd Diagnoses NOLA (acute kidney injury) N17.9
[2024-02-25] MEDS: piperacillin-tazobactam 3.375 GM in sodium chloride 0.9% (plus) 50 ML IV (08:33)
[2024-02-25] MEDS: potassium chloride ER 20 mEq Tablet PO (08:33)
[2024-02-25] MEDS: sodium bicarbonate 650 mg Tablet PO (08:33)
[2024-02-25 11:13] VITALS: BP 171/76; PULSE 75; RESP 17; TEMP 36.3; O2SAT 95
[2024-02-25 11:36] VITALS: BP 171/76; PULSE 75; RESP 17; TEMP 36.3; O2SAT 95
--- NOTE | 2024-02-25 13:49 | PC.NURSE ---
D/C orders were placed at 11:17. Obtained orders to remove clemente catheter and am still waiting for the pt to void. Once pt is able to void, he will be d/c home. Meds to bed have already been delivered to the pt.
--- NOTE | 2024-02-25 15:34 | PC.OT ---
OT TREATMENT HELD DUE TO SCHEDULED PATIENT D/C TODAY.
--- NOTE | 2024-02-25 15:58 | PC.NURSE ---
Discharge Note Patient discharged to [home] via [w/c to POV] accompanied by [his son]. Discharge instructions reviewed with patient and/or branch customer service representative. Mobile pharmacy medications and/or prescriptions provided. Belongings/home medications returned.
[2024-02-26 23:29] LABS: F.tularensis IgG AB Serum Positive (Negative); F.tularensis IgM AB Serum Negative (Negative)
[2024-02-28 17:11] LABS: E. Chaffeensis AB IGM <1:20; Interpretation PAST INFECTION
== END 2024-02-25 15:30 | disposition home or self-care (01) | DRG 871 ==
LOC: ER 21:49 → MEDSURG 02-18 00:10
PROVIDERS: Internal Medicine Nephrology; Admitting Provider Internal Medicine; Emergency Provider Emergency Medicine; Visit Provider Internal Medicine
DX: A41.50 Gram-negative sepsis, unspecified (principal); G93.41 Metabolic encephalopathy; N17.0 Acute kidney failure with tubular necrosis; J18.9 Pneumonia, unspecified organism; N39.0 Urinary tract infection, site not specified; L97.429 Non-pressure chronic ulcer of left heel and midfoot with unspecified severity; M62.82 Rhabdomyolysis; E87.20 Acidosis, unspecified; E87.1 Hypo-osmolality and hyponatremia; R65.20 Severe sepsis without septic shock; R59.1 Generalized enlarged lymph nodes; E86.0 Dehydration; D64.9 Anemia, unspecified; D69.6 Thrombocytopenia, unspecified; K76.9 Liver disease, unspecified; R19.7 Diarrhea, unspecified
CPT/HCPCS: 36415; 51702; 71045; 72128; 72131; 74176; 76770; 80053; 80074; 80306; 80307; 80503; 81001; 82274; 82306; 82310; 82436; 82550; 82570; 82652; 82728; 83010; 83036; 83520; 83540; 83550; 83605; 83615; 83690; 83735; 83880; 83883; 83935; 83970; 84100; 84133; 84155; 84165; 84300; 84443; 84550; 85025; 85045; 85610; 86036; 86038; 86060; 86140; 86160; 86225; 86334; 86618; 86666; 86668; 86705; 86706; 86757; 86803; 87040; 87086; 87150; 87205; 87340; 87486; 87581; 87633; 87798; 87806; 93005; 93971; 96372; 96374; 97110; 97116; 97163; 97167; 97530; 97535; 99285; J1650; J1940; J2020; J2543; J3490; J7030; J7120; Q3014

== ENCOUNTER → 2024-03-10 11:30 | Outpatient (BNVA) | payer SELFPAY | PROVIDERS: PCP Family Medicine; Visit Provider Family Medicine | DX: I10 Essential (primary) hypertension (principal); K76.89 Other specified diseases of liver; R74.8 Abnormal levels of other serum enzymes; N17.9 Acute kidney failure, unspecified; E83.42 Hypomagnesemia; E55.9 Vitamin D deficiency, unspecified; Z12.5 Encounter for screening for malignant neoplasm of prostate | CPT/HCPCS: 80053; 80061; 82306; 83690; 83735; 84443; 85025; 86140; G0103 ==

== ENCOUNTER 2024-03-14 09:01 | Outpatient (CLI) | payer SELFPAY | END 2024-03-14 09:02 | disposition home or self-care (01) | PROVIDERS: PCP Family Medicine; Visit Provider Family Medicine | DX: A21.9 Tularemia, unspecified (principal) | CPT/HCPCS: 36415; 87040 ==

== ENCOUNTER → 2024-06-18 13:30 | Outpatient (BNVA) | payer MEDICAID, SELFPAY | PROVIDERS: PCP Family Medicine; Visit Provider Family Medicine | DX: K76.89 Other specified diseases of liver (principal); D69.6 Thrombocytopenia, unspecified | CPT/HCPCS: 80053; 85025 ==

== ENCOUNTER → 2024-07-17 10:30 | Outpatient (BNVA) | payer MEDICAID, SELFPAY | PROVIDERS: Absent Provider Nurse Practitioner Family; PCP Family Medicine; Visit Provider Family Medicine | DX: N17.9 Acute kidney failure, unspecified (principal); E55.9 Vitamin D deficiency, unspecified; D64.9 Anemia, unspecified; E79.0 Hyperuricemia without signs of inflammatory arthritis and tophaceous disease | CPT/HCPCS: 80048; 82040; 82043; 82306; 82310; 82728; 83036; 83550; 83970; 84100; 84550 ==